=== PATIENT | female | born 1950 | race Asian ===

== ENCOUNTER → 2018-12-17 11:58 | Outpatient (CLI) | payer MEDICARE, OTHER, SELFPAY ==
--- NOTE | 2018-12-17 | DI.RAD.S_ITS ---
PROCEDURE: FL UPPER GI W AIR INDICATIONS: CHEST PAIN COMPARISON: [facility], CT, KIDNEY/ URETER/BLADDER, 11/24/2015, 12:52. [facility], CR, CHEST 2 VIEW, 08/31/2017, 9:14. 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 No suspicious abdominal calcifications. Visualized solid organ contours appear normal. Bony structures appear unremarkable. Cholecystectomy clips. Esophagus: Esophageal mucosa is normal on air-contrast views. On single-contrast views, there is diminished primary esophageal stripping wave as well as nonpropulsive tertiary contractions. No strictures, extrinsic mass effects, or diverticula. Spontaneous intermittent gastroesophageal reflux was observed. No hiatal hernia. There is normal transit of a calibrated barium tablet through the esophagus. Stomach: The stomach is normally distensible, with normal rugal fold thickness. No mucosal masses or ulcers. Pylorus and duodenal bulb appear normal in morphology. Duodenal folds are normal in thickness as well. IMPRESSION: 1. Diminished esophageal peristalsis. 2. Gastroesophageal reflux. 3. No hiatal hernia. Dictated by: Giuseppe Jones M.D. on 12/17/2018 at 15:00 Approved by: Giuseppe Jones M.D. on 12/17/2018 at 15:07
--- NOTE | 2018-12-17 | DI.MRI.S_ITS ---
PROCEDURE: MR HEAD/BRAIN WO/W CON INDICATIONS: FACIAL PARESTHESIA TECHNIQUE: Noncontrast axial T1 spin echo, axial T2 fast spin echo, sagittal and axial FLAIR, coronal T2 fast spin echo, axial gradient echo, axial diffusion and ADC through the brain. After the administration of contrast, axial and coronal T1 spin echo with fat saturation through the brain. COMPARISON: None. FINDINGS: Image quality: Excellent. CSF spaces: Basal cisterns are patent. No extra-axial fluid collections. Ventricles are normal in size and shape. Brain: No midline shift. No intracranial bleeds or masses. No abnormal intracranial enhancement. There is cerebral volume loss for age. There is periventricular white matter chronic small vessel ischemic change. The brainstem appears normal. Diffusion-weighted images demonstrate no acute ischemic insults. No chronic ischemic insults. Normal intravascular flow voids are present. Skull and face: Calvarial marrow is normal in signal. Orbits appear normal. Sinuses: Sinuses and mastoids appear clear. IMPRESSION: 1. Volume loss and small vessel ischemic disease. 2. No recent infarct. Dictated by: Richard Mendenhall M.D. on 12/17/2018 at 16:43 Approved by: Richard Mendenhall M.D. on 12/17/2018 at 16:45
--- NOTE | 2018-12-17 | DI.US.S_ITS ---
PROCEDURE: US CAROTID DOPPLER BI INDICATIONS: HYPERLIPIDEMIA TECHNIQUE: Color and pulse Doppler interrogation was performed of both carotid systems, with image documentation and velocity measurements. COMPARISON: None. FINDINGS: Stenosis calculations are based on SRU (Society of Radiologists in Ultrasound) criteria. Right side: Brachial blood pressure: 163/79 mm Hg. Common carotid artery peak systolic velocity: 56 cm/sec. Internal carotid artery peak systolic velocity: 56 cm/sec. Internal carotid artery end diastolic velocity: 28 cm/sec. External carotid artery peak systolic velocity: 90 cm/sec. ICA/CCA peak systolic ratio: 1.0. [place] scale imaging description: Mild scattered plaque. Percent internal carotid artery stenosis: Less than 50%. Vertebral artery: Flow direction is antegrade. Left side: Brachial blood pressure: 164/79 mm Hg. Common carotid artery peak systolic velocity: 69 cm/sec. Internal carotid artery peak systolic velocity: 111 cm/sec. Internal carotid artery end diastolic velocity: 35 cm/sec. External carotid artery peak systolic velocity: 99 cm/sec. ICA/CCA peak systolic ratio: 1.6. [place] scale imaging description: Moderate scattered plaque. Percent internal carotid artery stenosis: Less than 50%. Vertebral artery: Flow direction is antegrade. IMPRESSION: Less than 50% bilateral internal carotid artery stenosis. Dictated by: Paul Brice [facility] Interpreted: Akshat Sheets MD on 12/17/2018 at 14:16 Approved by: Akshat Sheets M.D. on 12/17/2018 at 15:50
== END ==
PROVIDERS: PCP Family Medicine; Visit Provider Family Medicine
DX: E78.5 Hyperlipidemia, unspecified (principal); R20.2 Paresthesia of skin; E11.9 Type 2 diabetes mellitus without complications; R07.9 Chest pain, unspecified; R20.0 Anesthesia of skin; I65.23 Occlusion and stenosis of bilateral carotid arteries; R19.2 Visible peristalsis; K21.9 Gastro-esophageal reflux disease without esophagitis; I67.82 Cerebral ischemia
CPT/HCPCS: 70553; 74247; 93880; A9579

== ENCOUNTER → 2019-01-27 10:15 | Outpatient (CLI) | payer MEDICARE, OTHER, SELFPAY ==
--- NOTE | 2019-01-27 | DI.NM.S_ITS ---
PROCEDURE: NM JENNIFER PERF SPECT REST & STR Rest and exercise myocardial perfusion SPECT with gated imaging and ejection fraction RADIOPHARMACEUTICAL: 11.8 mCi Tc-99m sestamibi IV at rest and 25.7 mCi Tc-99m sestamibi IV at peak exercise. A one day-protocol was performed. INDICATIONS: CHEST PAIN TECHNIQUE: Radiopharmaceutical was injected at peak stress test, and also at rest. SPECT images were obtained. SPECT myocardial perfusion images were displayed in short axis, horizontal long axis, and vertical long axis views. Gated images were reviewed using its learning software. COMPARISON: None. CARDIAC STRESS: A standard Alden treadmill exercise tolerance test was performed by the patient under the supervision of an attending staff. The patient exercised for 6 minutes and 54 seconds reaching 10.1 METs; functional aerobic impairment (CHIQUITA) is -10%. Hemodynamic data: There is normal blood pressure and heart rate response to exercise stress. Patient achieved 100% of maximum predicted heart rate at peak exercise. Symptoms: Patient denied chest pain during exercise. EKG: Resting ECG shows slight ST elevations in the inferior and anterior leads, which could be from benign early repolarization. No diagnostic EKG changes of ischemia; no ectopy. FINDINGS: Raw data: There is good myocardial labeling by radiotracer. No significant motion artifacts. Tcmh-ei-dvusg ratio is 0.23 (normal is less than 0.38 for sestamibi tracer, and less than 0.50 for thallium tracer). Left ventricle function: Gated images demonstrate normal left ventricle wall thickening. No segmental wall motion abnormality. No transient ischemic dilation; TID is 0.79 (normal less than 1.3). The left ventricle resting end-diastolic volume is 48 mL. Left ventricle stress ejection fraction is 95%; normal values are above 45%. Myocardial perfusion: There is normal distribution of activity in the left and right ventricular myocardium. No fixed or reversible perfusion defects. IMPRESSION: Low risk, normal treadmill nuclear stress test. 1) No perfusion evidence of ischemia or infarction. 2) Normal left ventricular size, wall motion, and systolic function (EF post stress overcalculated at 95%). 3) No ECG evidence of ischemia. 4) No angina during the study. 5) Compared to the nuclear stress test done 11/15/2014, no significant change. Dictated by: Patricio Thomas MD on 01/27/2019 at 16:35 Approved by: Patricio Thomas MD on 01/27/2019 at 16:38
--- NOTE | 2019-01-27 14:49 | PM.TREADMILL ---
Cardiac Stress Test Report Referral & Results Date Patient Seen: 01/27/19 Requesting provider: Tamiko Davis Indication: Chest discomfort Rest ECG: Unremarkable Procedure Note: Today following both written and verbal informed consent the patient was exercised according to a standard Alden protocol patient went for a total of 6 minutes 54 seconds achieving a maximum heart rate of approximately 135 (lots of motion artifact during exercise obscures ability to interpret heart rate) maximum systolic blood pressure of 172. This is approximately 10.1 METS. Exercise was terminated at this point because of targets were met and patient was unable to keep up and/or go any faster/further. Patient was also given Cardiolite through a previously started Hep-Lock IV by the diagnostic imaging staff approximately 1 minute prior to the cessation of exercise. No ST-T segment changes identified had an exercise. Motion artifact obscured ST segments during exercise. Normal heart rate and blood pressure response although somewhat blunted heart rate response again difficult to be sure given artifact No dysrhythmia Functional aerobic impairment rates-10% on the active scale or 10% better than average Impression: No ECG evidence of ischemia Please see perfusion imaging report as well Please note: Actual ECG tracings can be found in the PACS system.
== END ==
PROVIDERS: PCP Family Medicine; Visit Provider Family Medicine
DX: R07.89 Other chest pain (principal)
CPT/HCPCS: 78452; 93016; 93017; 93018; A9502

== ENCOUNTER → 2020-03-26 09:35 | Outpatient (CLI) | payer MEDICARE, OTHER, SELFPAY ==
[2020-03-28 02:27] LABS: COVID19 Sendout Not Detected (Not Detect)
== END ==
PROVIDERS: PCP Family Medicine; Visit Provider Nurse Practitioner
DX: Z11.59 Encounter for screening for other viral diseases (principal)
CPT/HCPCS: 87635

== ENCOUNTER 2020-03-29 05:45 | Inpatient (IN) | payer MEDICARE, OTHER, SELFPAY ==
[2020-03-25 08:49] VITALS: BMI 25.9
[2020-03-29] VITALS (16 sets, daily range): BP systolic 122–160; BP diastolic 54–114; PULSE 64–103; RESP 14–20; TEMP 35.8–36.8; O2SAT 95–100; BMI 25.9
--- NOTE | 2020-03-29 | DI.RAD.S_ITS ---
PROCEDURE: XR CERVICAL SPINE 2V OR 3V INDICATIONS: C3-7 ANTERIOR DISCECTOMY W/ ANTER POST INSTRUMENTATION TECHNIQUE: 3 view(s) of the cervical spine were acquired. COMPARISON: [facility], MR, MR CERVICAL SPINE WITHOUT CONTRAST, 01/20/2020, 13:26. FINDINGS: Bones: No fractures or dislocations to the T1 level where well seen. Anterior interbody vertebral fixation devices are seen at C3-4, C4-5, C5-6, and C6-7 from the anterior approach. Facet fixation devices are seen to have been placed bilaterally at C3-4, C4-5, C5-6, and C6-7. These have been placed from a posterior approach, and normal alignment is established.. Soft tissues: No prevertebral soft tissue swelling. IMPRESSION: Excellent anatomic alignment established after anterior and posterior surgical intervention and fixation device placement from C3 through C7. Dictated by: Akshat Sheets M.D. on 03/29/2020 at 12:58 Approved by: Akshat Sheets M.D. on 03/29/2020 at 13:04
[2020-03-29] MEDS: LACTATED RINGERS 1,000 ML 42 ML IV ×2 (07:18→09:40)
--- NOTE | 2020-03-29 07:22 | PM.PREOP ---
Pre-operative Note COVID-19 COVID-19 status: Negative Result date/Date tested (Pos, Neg/Pending): 03/26/20 Interval Note History & Physical reviewed/Exam performed by Physician: Yes Changes to H&P: No
--- NOTE | 2020-03-29 07:31 | P.OP_ITS ---
Operative Date/Time/Diagnoses Date of procedure: 03/29/20 Time of procedure: :22 Pre-op diagnosis: Cervical stenosis with myelopathy Post-op diagnosis: same Procedure & Clinicians Procedure: C3-4, C4-5, C5-6, C6-7 posterior fusion with posterior segmental instrumentation C3-4, C4-5, C5-6, C6-7 ACDF with cages Iliac crest bone graft aspirate Use of microscope Same procedure as scheduled: Yes Indications: [age] year old female with intractable pain from myelopathy. They had failed conservative management and requested operative intervention. Risks and benefits of surgery were discussed and appropriate consents were obtained. Surgeon: Turner Brown Risk Engineer: Lelia Patton Anesthesia Type: General Operative Notes Findings: None Closure Type: primary Specimen(s): none sent Prosthetic devices, grafts, tissues, transplants, or devices: Archuleta Cavus post instrumentation Nayla NICOLE-C anterior cage/plates Applied: catheter Estimated Blood Loss (mL): 15 Procedure in detail: The patient was brought to the operating room and intubated on the stretcher. Time-out was performed. There were then rolled over to the well-padded prone position on chest rolls. Two views of fluoroscopy were taken to confirm our positioning. The neck was then prepped and draped in the standard sterile fashion. Preoperative antibiotics were given. Using fluoroscopy, we localized for planned incisions. Two small 8 mm horizontal incisions were made over the lateral masses approximately 2 fingers below our planned surgical site. We then spread down and opened up the fascia. Then percutaneously placed our Steinmann pin through the soft tissue into the facet joint at C3-4 under fluoroscopic visualization. We used the reamer to decorticate the lateral masses compromising the facet. A trocar was placed over the Steinmann pin into the facet and then the pin was removed. We used a rasp to decorticate the facet joint itself. We then filled the DTrax cage with Primagen bone graft and impacted it into the facet joint at C3-4 under fluoroscopic guidance. We then took the lateral mass screw and placed it through the cage and then into the lateral mass for the posterior screw fixation. The battery container finishing hand was removed and we packed more bone graft down the trocar covering the lateral mass. This was done bilaterally. This completed the instrumented posterior fusion at C3-4. We then went to the next levels at C4-5, C5-6, and C6-7. The same procedure was performed with preparation, placement of the cage with bone graft, and placement of the screws for bilateral instrumented posterior fusion at C4-5, C5-6, and C6- 7. The wounds were irrigated. The skin was closed and a sterile dressing placed. The patient was then rolled over to the table in the supine position and positioned for the anterior surgery. The arms were tucked and a shoulder roll was placed. The neck and left iliac crest were prepped and draped in the standard sterile fashion. A 3 cm oblique incision was made on the left side of the neck along the skin fold. Bovie was used to split the platysma. We then bluntly dissected a standard anterolateral approach to the precervical fascia. A marker was placed and x-ray taken to confirm our positioning. We then used the Bovie to the subperiosteally lift up the longus colli muscles. Self-retaining retractors were placed. We then placed Mystic pins and distracted across the C3-4 disc space. We brought in the microscope. A complete anterior discectomy was performed at C3-4 using a combination of scalpel, curettes, pituitaries, and Kerrison rongeurs. The bur was used to take down the posterior osteophytes as well as decorticate the disc space. We then released the PLL and used the Kerrison to remove any further posterior osteophytes and disc material. At the end a nerve hook could be swept cephalad caudally and out the neural foramen and everything was open. We trialed for our cages. All these cages were 12 x 14 mm cages. A small stab incision was made over the left iliac crest. We placed a Jamshidi aspiration needle into the iliac crest and aspirated several mL of bone marrow graft. We then took our Nayla LDR NICOLE-C cage and packed it with Primagen, and mixed in the bone marrow aspirate. The cage was then placed into the disc space under fluoroscopic guidance. The 2 locking plates were placed through the cage for fixation. I accidentally impacted the 2nd plate through the same inferior hole as the 1st plate and slid next to the 1st 1 with a double plate going down through C4. We then placed another plate going up through C3 and it worked fine. This completed the ACDF at C3-4. We then went to the next levels at C4-5, C5-6, and then C6-7. Again a complete diskectomy was performed including taking down the PLL and posterior osteophytes and disc material. The endplates were prepped with a bur. We trialed and then packed our NICOLE-C cage with the bone graft and then placed into the disc space. The locking plates were placed as well. This completed the ACDFs at C4-5, C5-6, and C6-7. Final x-rays were taken. The wound was copiously irrigated. There was no bleeding. The carotid was bleeding nicely. The platysma was closed. The superficial skin were closed. A Steri-Strip was placed over the iliac crest incision. Sterile dressings were placed. The patient was then extubated and brought to the recovery room without complication. Complications: none Post-operative Condition: stable Disposition: PACU Plan for aftercare: Inpatient. Up with PT
[2020-03-29] MEDS: CLINDAMYCIN 600 MG/50 ML PIGGYBACK 50 MG IV ×3 (07:48→23:35)
--- NOTE | 2020-03-29 08:24 | SUR.OPER ---
Prone on padded OR bed, head in foam head support, gel chest rolls, gel pad under knees, pillow under lower legs, toes free of pressure, arms tucked at side. Safety belt at thigh. Tape securing shoulders bilaterally.
[2020-03-29] MEDS: THROMBIN (RECOMBINANT) 5,000 UNIT VIAL 5000 UNIT TOP (08:30)
[2020-03-29] MEDS: SODIUM CHLORIDE 0.9% 1,000 ML, GENTAMICIN 80 MG IRR (08:31)
[2020-03-29] MEDS: BUPIVACAINE 0.25% W/ EPI 30 ML VIAL 60 ML INJ (08:33)
--- NOTE | 2020-03-29 09:29 | SUR.OPER ---
Supine on padded OR bed, head on gel pillow, arms tucked at side and padded with gel, legs uncrossed, safety belt at thigh, tape over blanket over lower legs.
--- NOTE | 2020-03-29 11:43 | SUR.PHASEI ---
Pt arrived with oral airway for patency of airway, 02 nasal cannula added. airway out w/o difficulty, soft collar placed to neck
--- NOTE | 2020-03-29 11:55 | SUR.PHASEI ---
Pt slow to wake up, moves all extremeties to commands, stated no when asked if she wanted her dentures in and denied pain and nausea.
--- NOTE | 2020-03-29 12:44 | SUR.PHASEI ---
Pt with out pain, nausea, report called to Vin[facility], pt transported up to room 208 and left in stable condition. Bed low, locked and SCDs on, call light in hand.
[2020-03-29] MEDS: LACTATED RINGERS 1,000 ML 125 ML IV ×2 (12:58→21:48)
--- NOTE | 2020-03-29 13:21 | PC.ADMIT ---
[facility] Admission Note: The patient,Jessi Lopez,69 y/o, was given written information regarding hospital policies, unit procedures and contact persons. Patient's smoking status: Former smoker. Vital Signs - 8 hr 03/29/20 07:02 03/29/20 11:26 03/29/20 11:31 Temperature 98.1 F 96.6 F L Pulse Rate 64 90 89 Respiratory Rate 20 16 15 Blood Pressure 144/75 H 126/58 L 122/60 Pulse Oximetry 100 96 95 03/29/20 11:36 03/29/20 11:41 03/29/20 11:48 Temperature 97.3 F L 97.7 F Pulse Rate 88 88 94 H Respiratory Rate 14 19 20 Blood Pressure 137/63 136/63 151/70 H Pulse Oximetry 96 96 99 03/29/20 11:57 03/29/20 12:12 03/29/20 12:25 Temperature 97.8 F 96.5 F L Pulse Rate 94 H 89 89 Respiratory Rate 20 19 15 Blood Pressure 160/73 H 147/72 H 146/71 H Pulse Oximetry 99 99 100 PATIENT ACCOMPANIED BY SPOUSE FROM PACU. PATIENT AWAKE BUT DROWSY, STATES I JUST WANT TO BE WARM AND SLEEP. WARM BLANKETS PROVIDED. PROVIDED ICE WATER, PATIENT NOT INTERESTED AT THIS TIME. IVF INFUSING ORDERED. SCD'S ON. ANTERIOR NECK DRSG CDI, POSTERIOR NECK DRSG WITH SHADOW DRAINAGE TO RIGHT DISTAL CORNER OF DRSG, GRAFT SITE LEFT ASIS HIP DRSG CDI. ORIENTED TO CALL LIGHT SYSTEM.
--- NOTE | 2020-03-29 15:11 | PT-IP ANOTE ---
PT received orders and reviewed chart. Contacted pt to initiate evaluation and was able to collect PLOF from her and her spouse contributed heavily as pt was very soft-spoken. Pt did not feel ready to move, citing nausea and pain. Will follow up 03/30/20.
[2020-03-29] MEDS: LOSARTAN 50 MG TABLET 100 MG PO (16:36)
[2020-03-29] MEDS: DOCUSATE 100 MG CAPSULE PO (20:04)
[2020-03-29] MEDS: GABAPENTIN 300 MG CAPSULE PO (20:04)
[2020-03-29] MEDS: OXYCODONE IR 5 MG TABLET PO (20:04)
--- NOTE | 2020-03-29 23:31 | PC.NURSE ---
Evening note: Jessi reports little to no pain to her neck, refused ice packs this evening. Soft cervical collar on for support. Reports pain 5/10 to bilateral pinky fingers and left elbow. Medicated with oxycodone with good results, patient dozing intermittently since given med. Denies numbness or tingling in extremities. VS stable, hypertensive, BP meds given as scheduled. RA O2 98%
[2020-03-29] MEDS: ACETAMINOPHEN 325 MG TABLET 650 MG PO (23:35)
[2020-03-29] MEDS: OXYCODONE IR 10 MG TABLET PO (23:35)
[2020-03-30] MEDS: OXYCODONE IR 10 MG TABLET PO ×2 (03:51→06:39)
[2020-03-30] MEDS: LEVOTHYROXINE 50 MCG TABLET PO (05:20)
[2020-03-30 06:35] VITALS: BP 136/78; PULSE 93; RESP 16; TEMP 36.8; O2SAT 97
--- NOTE | 2020-03-30 07:46 | PM.PNPO.1 ---
Subjective Subjective Date Patient Seen: 03/30/20 Time Patient Seen: 07:46 Interval history: She feels like the oxycodone is not helping on the pain. Also she feels much weaker in the left arm today Exam Vital Signs (past 8 hours): - 03/29/20 23:59 03/30/20 06:35 Temperature 97.1 F L 98.3 F Pulse Rate 101 H 93 H Respiratory Rate 18 16 Blood Pressure 147/73 H 136/78 Pulse Oximetry 97 97 Oxygen Delivery Method Room Air Oxygen Flow Rate 0 Const Orientation: alert and oriented x3 Back/Spine/Pelvis Other: CDI. Drain 0/2 output. 5/5 motor both upper extremities except for 2/5 left deltoid 4/5 left biceps, triceps, intrinsics. 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 I am going to put her on some steroids. I also going to change her pain medication to Dilaudid. I will check a CT of the neck as well. Quality VTE Deep Vein Thrombosis/Pulmonary Embolism Present on Admission: No
--- NOTE | 2020-03-30 07:49 | DI.CT.S_ITS ---
PROCEDURE: CT CERVICAL SPINE WO CON INDICATIONS: L arm weakness TECHNIQUE: Noncontrast 3 mm thick sections acquired from the skull base to the T4 level. Sagittal and coronal reformats were then constructed. For radiation dose reduction, the following was used: automated exposure control, adjustment of mA and/or kV according to patient size. COMPARISON: [facility], CR, XR CERVICAL SPINE 2V OR 3V, 03/29/2020, 9:02. FINDINGS: Image quality: Excellent. Bones: No fractures or dislocations. There are expected postsurgical changes from cervical fusion procedure both anteriorly and posteriorly performed 03/29/20, 1 day ago. No postoperative hematoma is found. Small amounts of gas are seen with within the soft tissues of the anterior and posterior neck, left slightly greater than right, small in overall quantity. A surgical drain traverses from left side into the anterior prevertebral space, without adjacent abnormal fluid collection. Visualized superior ribs are intact. Soft tissues: Prevertebral soft tissues are normal in thickness. No paravertebral hematomas. No apical pneumothoraces. IMPRESSION: Expected postsurgical changes 1 day after operative fusion from anterior and posterior approach from C3 through C7. Small amounts of gas are seen within the soft tissues as expected. No postoperative hematoma or abnormal fluid collection is seen. Surgical drain noted from left-sided approach extending into the prevertebral space. The nurse caring for the patient was contacted directly to confirm presence of a surgical drain at this site, and she concurs. Source of left-sided arm weakness is not seen. Dictated by: Akshat Sheets M.D. on 03/30/2020 at 9:37 Approved by: Akshat Sheets M.D. on 03/30/2020 at 10:18
--- NOTE | 2020-03-30 09:15 | PT.IIE ---
Current Diagnoses Spinal stenosis, cervical region (03/29/20) Surgery Performed Operation Date: 03/29/20 07:45 Actual Procedures p C3-7 anterior cervical discectomy & anterior/posterior instrumentated fusion w/ bone graft - Turner Brown MD Surgical History (Last Updated 03/25/20 @ 09:14 by Cara Pendleton RN) History of section (Acute) Hx of appendectomy (Acute) Hx of bilateral cataract extraction (Acute) Hx of cholecystectomy (Acute) Hx of dilation and curettage (Acute) Hx of eye surgery (Acute) Hx of sinus surgery (Acute) Hx of tubal ligation (Acute) Medical History (Last Updated 03/25/20 @ 09:19 by Cara Pendleton RN) Allergic rhinitis (Acute) Arthritis (Acute) Esophageal dysmotility (Acute) GERD (gastroesophageal reflux disease) (Acute) Hearing loss (Acute) HTN (hypertension) (Acute) Hypercholesterolemia (Acute) Hypothyroid (Acute) IBS (irritable bowel syndrome) (Acute) Pre-diabetes (Acute) Psoriasis (Acute) RLS (restless legs syndrome) (Acute) Spinal stenosis (Acute) Physical Therapy Inpatient Evaluation/Re-Eval M1 PT/OT-IP Prior Functional Status Start: 03/29/20 14:40 Freq: NEEDED Status: Active Protocol: Document 03/30/20 09:15 AB (Rec: 03/30/20 10:36 [email or web address]) Medical Review Prior Functional Status Medical History Reviewed Yes Communication able to make needs known Mobility and Gait able to ambulate without AD; independent with all mobilities Social History Household Members spouse Living Arrangements House Number of Floors (Floors) One Floor Number of Stairs To Enter/Railing? 2 steps to enter without rails Home Environment Standard Height Toilet,Tub/ Shower Home Equipment Front Wheel Walker,Shower Seat with Backrest,Hand Held Shower Additional Social History Comment Pt lives with her , Ramiro, who is retired. Ramiro uses a cane for most mobility but states he will be able to assist pt at discharge depending on level of assist needed. M2 PT-IP Current Condition Start: 03/29/20 14:40 Freq: NEEDED Status: Active Protocol: Document 03/30/20 09:15 AB (Rec: 03/30/20 10:36 [email or web address]) Physical Therapy Current Condition Current Condition Evaluation Date 03/30/20 Treatment Diagnosis s/p C3-4,C4-5,C5-6, C6-7 fusion; difficulty in walking Onset Date 03/29/20 Precautions Cervical Spine Precautions Soft Collar for Comfort,No Heavy Lifting,Log Roll M3 PT-IP Subjective Start: 03/29/20 14:40 Freq: NEEDED Status: Active Protocol: Document 03/30/20 09:15 AB (Rec: 03/30/20 10:36 AB [id number]) Subjective Physical Therapy Visit Type Type Initial Evaluation Visit Start Time 09:15 Visit Stop Time 09:48 Total Visit Minutes 33 Number of SPEECH AND LANGUAGE TUTOR Visits 0 Physical Therapy Visit Comments Patient Comments pt is agreeable to do PT and requested to go back to bed afterwards Therapy Pain Assessment Pain When Pain Assessed At Rest Pain Present Pain Present Pain Reported Location Left Arm Intensity 9 Scale Used Numeric (0 - 10) Pain Management Techniques Distraction,Modification of Treatment,Re-positioning, Timing of Activity with Medications M4 PT-IP Mobility and Gait Start: 03/29/20 14:40 Freq: NEEDED Status: Active Protocol: Document 03/30/20 09:15 AB (Rec: 03/30/20 10:36 AB [id number]) PT-Bed Mobility Assessment Rolling Type of Rolling Log Rolling Level of Assist Standby Assistance Sit to Supine Sit to Supine Contact Guard Assistance PT-Transfer Assessment Sit to and From Stand Sit to and from Stand Minimal Assistance,1 Person Assistance,Use of Upper Extremities Equipment Transfer Assistive Device Gait Belt,Front Wheeled Walker Orthotic/Prosthetic Devices or Brace: No Transfers Transfer Destination Bed Transfer Technique ambulated using FWW Transfer Ability Level of Assist Minimal Assistance,1 Person Assistance,Use of Upper Extremities Comments Mobility Comments pt sitting on chair. c/o LUE pain and weakness and requesting to go back to bed. educated on cervical precautions and log roll bed mobility. completed sit to stand min A and cues and ambulated towards the bed using FWW min A. pt refused to do more ambulation and stated that she has to go back to bed so bad. completed log roll sit to supine CGA and cues. positioned pt in bed. call light and table placed within reach. Gait Assessment Gait Gait Assistance Required: Minimum Assistance,1 Person Assist Distance (Feet) 12 Assistive Devices Assistive Device Gait Belt,Front Wheeled Walker Orthotic/Prosthetic Devices or Brace: No Gait Deviations General Gait Pattern Antalgic,Decreased Stride Length,Decreased Feet Clearance Factors Limiting Gait Function Factors Limiting Gait Function Decreased Activity Tolerance, Decreased Sensation,Decreased Strength,Limited Range of Motion,Pain,Poor Balance,Poor Safety Awareness PT-Balance Assessment Sitting Balance and Reactions Static Sitting Balance Ability Good Dynamic Sitting Balance Ability Good Standing Balance and Reactions Static Standing Balance Ability Fair Dynamic Standing Balance Ability Fair Device Used FWW M5 PT-IP Objective Assessments Start: 03/29/20 14:40 Freq: NEEDED Status: Active Protocol: Document 03/30/20 09:15 AB (Rec: 03/30/20 10:36 [email or web address]) Orientation Orientation/Cognition Level of Alertness Alert Orientation Name,Place,Situation Language Function Ability No Deficits Noted Safety Awareness Understands Safety Issues Memory Description No Deficits Noted Gross Range of Motion Lower Extremity ROM Assessment Within Functional Limits Strength Lower Extremity Strength Assessment Within Functional Limits Sensation Assessment Sensation Gross Sensation Left UE Impaired Sensation Description Pain Comments Sensation Comments when asked what type of pain and pt stated all of the above M6 PT-IP Treatment Start: 03/29/20 14:40 Freq: NEEDED Status: Active Protocol: Document 03/30/20 09:15 AB (Rec: 03/30/20 10:36 [email or web address]) Physical Therapy Treatment Education Education Provided Precautions,Post-Op Packet, Safety M7 PT-IP Assessment and Plan Start: 03/29/20 14:40 Freq: NEEDED Status: Active Protocol: Document 03/30/20 09:15 AB (Rec: 03/30/20 10:36 [id number]) PT Summary Assessment and Plan Potential Rehabilitation Potential Good Status of Condition at Evaluation Evolving Summary Impairments Pain,ROM,Strength,Balance, Coordination,Sensation,Tone, Bed Mobility,Transfers,Gait, Activity Tolerance Assessment Summary pt requiring min A with mobility and is unable to tolerate much activity. pt plans to go home and stated that spouse can assist her but spouse uses a SPC for ambulation and will be limited to assistance that can be provided. caregiver training will be conducted when appropriate as well as stair climbing training. will continue to assess progress. Goals Bed Mobility Goal Independent Transfer Goal Independent,Front Wheeled Walker Gait Goal Independent,Front Wheel Walker Gait Distance 200 Other Goals ambulation without AD SBA 150 ft up/down 2 steps wtihout rails SBA Days to Meet Goals 5 Frequency of Treatment Frequency Of Treatment Twice a Day Treatment Plan Physical Therapy Treatment Plan Bed Mobility Training,Transfer Training,Gait Training, Therapeutic Exercise,Balance Retraining,Post Op Education, Discharge Planning,Hot or Cold Pack,Neuromuscular Re-ed, Coordination Retraining,Manual Therapy Other Recommendations and Next Treatment ambulation, stair climbing, Focus caregiver training when appropriate Recommendations To Nursing Amount of Assist Needed 1 Person Assist Discharge Recommendations PT Discharge Recommendations Home with Assistance,Home Health,SNF Rehab Other Discharge Recommendations depending on progress: SNF vs home with assist and HHPT Transportation Needs at Discharge Private Vehicle,Wheelchair/ Cabulance
[2020-03-30] MEDS: DOCUSATE 100 MG CAPSULE PO ×2 (09:38→21:21)
[2020-03-30] MEDS: HYDROMORPHONE 2 MG TABLET PO (09:38)
[2020-03-30] MEDS: SPIRONOLACTONE 25 MG TABLET PO (09:38)
[2020-03-30] MEDS: DEXAMETHASONE 10 MG/ML VIAL IV (09:41)
[2020-03-30 10:00] VITALS: BP 150/77; PULSE 75; RESP 15; TEMP 36.6; O2SAT 99
--- NOTE | 2020-03-30 11:11 | SLP.IPNOTE ---
Swallow screen administered Pt has no complaints and is tolerating soft foods, water and pills. No formal bedside swallow evaluation warranted at this time. Voice was clear and at baseline, per pt/family report. Education was provided orally and in writing RE potential surgical effects on voice and swallow. Pt verbalized understanding.
--- NOTE | 2020-03-30 11:14 | PC.NURSE ---
Patient up to chair after having a ct of her neck. Given first dose of decadron through iv. Patients pain medication changed from oxycodone to Dilaudid and this has been more effective for her discomfort. She has a cdi to her anterior neck, and her posterior neck dressing has dried bloody drainage to the r.lower corner. Both are intact. She states that she is having some numbness down her r.arm, normally before surgery it was only to her r.hand. She ambulated with PT and she is now back to bed, in room visiting.
[2020-03-30 12:22] VITALS: BP 148/73; PULSE 78; RESP 15; TEMP 36.7; O2SAT 99
--- NOTE | 2020-03-30 13:02 | OT.IP.EVAL ---
Current Diagnoses Spinal stenosis, cervical region (03/29/20) Surgery Performed Operation Date: 03/29/20 07:45 Actual Procedures p C3-7 anterior cervical discectomy & anterior/posterior instrumentated fusion w/ bone graft - Turner Brown MD Past Medical History (Last Updated 03/25/20 @ 09:19 by Cara Pendleton RN) Allergic rhinitis (Acute) Arthritis (Acute) Esophageal dysmotility (Acute) GERD (gastroesophageal reflux disease) (Acute) Hearing loss (Acute) HTN (hypertension) (Acute) Hypercholesterolemia (Acute) Hypothyroid (Acute) IBS (irritable bowel syndrome) (Acute) Pre-diabetes (Acute) Psoriasis (Acute) RLS (restless legs syndrome) (Acute) Spinal stenosis (Acute) Surgical History (Last Updated 03/25/20 @ 09:14 by Cara Pendleton RN) History of section (Acute) Hx of appendectomy (Acute) Hx of bilateral cataract extraction (Acute) Hx of cholecystectomy (Acute) Hx of dilation and curettage (Acute) Hx of eye surgery (Acute) Hx of sinus surgery (Acute) Hx of tubal ligation (Acute) Occupational Therapy Inpatient Evaluation/Re-Eval M1 PT/OT-IP Prior Functional Status Start: 03/30/20 15:24 Freq: NEEDED Status: Active Protocol: Document 03/30/20 13:02 [facility] (Rec: 03/30/20 15:53 [facility] [id number]) Medical Review Prior Functional Status Medical History Reviewed Yes Communication able to make needs known Mobility and Gait able to ambulate without AD; independent with all mobilities Activities of Daily Living and IADL's Prior pt completely independent with all ADL and IADl needs. Social History Household Members spouse Living Arrangements House Number of Floors (Floors) One Floor Number of Stairs To Enter/Railing? 2 steps to enter and states has a left hand rail. Home Environment Standard Height Toilet,Tub/ Shower Home Equipment Front Wheel Walker,Straight Cane,Shower Seat with Backrest ,Hand Held Shower Additional Social History Comment Pt lives with her , Ramiro, who is retired. Ramiro uses a cane for most mobility but states he will be able to assist pt at discharge depending on level of assist needed. M2 OT-IP Current Condition Start: 03/30/20 15:24 Freq: Status: Active Protocol: Document 03/30/20 13:02 [facility] (Rec: 03/30/20 15:53 [facility] [id number]) Occupational Therapy Current Condition Current Condition Evaluation Date 03/30/20 Treatment Diagnosis s/p C3-7 ACDF Diagnosis Onset Date 03/29/20 Post Operative Precautions Cervical Spine Precautions Soft Collar for Comfort,No Heavy Lifting,Log Roll M3 OT- IP Subjective and Pain Start: 03/30/20 15:24 Freq: Status: Active Protocol: Document 03/30/20 13:02 [facility] (Rec: 03/30/20 15:53 [facility] [id number]) OT- Subjective Occupational Therapy Visit Type Type Initial Evaluation Visit Start Time 12:34 Visit Stop Time 13:02 Total Visit Minutes 38 Occupational Therapy Visit Comments Patient Comments Pt approached in the morning, but not wanting to do OT until after lunch. Patient/Caregiver Goals To go home. OT Pain Assessment Pain When Pain Assessed During Mobility Pain Present Pain Present Pain Reported Location Left Arm Intensity 8 M4 OT- IP ADL's Start: 03/30/20 15:24 Freq: Status: Active Protocol: Document 03/30/20 13:02 [facility] (Rec: 03/30/20 15:53 [facility] [id number]) OT [id number] Comments OT Self-Feeding Comments Not at meal time, pt aware to eat upright, chew her food thoroughly, and alternate between solid and liquids. OT ADL-Grooming General Evaluation Grooming Ability Standby Assistance Areas Needing Assistance Retrieving/Set-up of Grooming Items Comments OT Grooming Comments Pt able to do while standing with FWW in front of her. OT ADL-Oral Care General Eval Oral Care Ability Standby Assistance Areas of Assistance Retrieving/Set-Up of Items Comments Oral Care Comments Initial education to spit into the cup to best follow her cervical precautions. OT ADL-Dressing General Eval Lower Body Dressing Ability Maximum Assistance Comments OT Dressing Comments Pt not wanting to attempt LB dressing at this time. Pt did not want to try to learn how to luigi/doff the soft collar today. OT ADL-Toileting General Evaluation Toileting Ability Total Assistance Comments OT Toileting Comments Pt not having to go and has a catheter in place. OT ADL-Bathing Comments OT Bathing Comments NOt performed. M5 OT- IP IADL's Start: 03/30/20 15:24 Freq: Status: Active Protocol: Document 03/30/20 13:02 [facility] (Rec: 03/30/20 15:53 [facility] [id number]) OT-Instrumental Activities of Daily Living Home Safety Awareness Awareness of Need for Assistance at Home Good Awareness Medication Management Medication Management Comments Pt's states will be able to assist pt with all needs at home of IADl's. Money Management Money Management Comments Pt's states will be able to assist pt with all needs at home of IADl's. Meal Preparation Meal Preparation Comments Pt's states will be able to assist pt with all needs at home of IADl's. Babysitter Babysitter Comments Pt's states will be able to assist pt with all needs at home of IADl's. M6 OT- IP Functional Cognition Start: 03/30/20 15:24 Freq: Status: Active Protocol: Document 03/30/20 13:02 [facility] (Rec: 03/30/20 15:53 [facility] [id number]) Cognitive Factors Limiting Selfcare Function Cognitive Ability Level of Alertness Alert Patient Orientation Name,Place,Situation Attention Span Ability Capable of Focused Attention, Capable of Sustained Attention Ability to Follow Commands Able to Follow One Step Commands Safety Awareness Decreased Ability to Apply Precautions,Underestimates Need for Assistance Cognitive Comments Cognitive Assessment Comments Pt a little groggy and needing cues for log rolling and for cervical precautions during ADl needs. OT- Vision and Hearing OT- Hearing Assessment OT- Hearing Assessment WFL M7 OT- IP Mobility and Balance Start: 03/30/20 15:24 Freq: Status: Active Protocol: Document 03/30/20 13:02 [facility] (Rec: 03/30/20 15:53 [facility] [id number]) OT- Bed Mobility Assessment Rolling Type of Rolling Roll to Right Level of Assistance Contact Guard Assistance Supine to Sit Supine to Sit Assist Minimal Assistance,1 Person Assistance Sit to Supine Sit to Supine Assist Minimal Assistance,1 Person Assistance Scooting Scooting to Edge of Bed Minimal Assistance OT-Transfer Assessment Sit to and From Stand Sit to and from Stand Minimal Assistance Transfers Transfer Ability Minimal Assistance Technique Transfer Destination Bed Devices Transfer Assistive Devices Gait Belt,Front Wheeled Walker Comments Mobility Comments MARIANA to stand and for steadying while walking with the FWW. Pt initially nauseated, dry heaves, and then able to burp. BP 151/82 OT- Balance Assessment Sitting Balance and Reactions Static Sitting Balance Ability Good Standing Balance and Reactions Static Standing Balance Ability Fair M8 OT- IP Objective Assessments Start: 03/30/20 15:24 Freq: Status: Active Protocol: Document 03/30/20 13:02 [facility] (Rec: 03/30/20 15:53 [facility] [id number]) OT Gross Range of Motion Upper Extremity Range of Motion Assessment Left Impaired ROM Impairments Pt not able to raise up her left arm at this time and able to use in gravity eliminated positions. OT Strength Upper Extremity Strength Assessment Left Impaired OT-Muscle Tone Assessment Muscle Tone WNL Yes OT Sensation Assessment Comments Summary Comments Decreased sensation for LUE. Edema Edema Comments Swelling in left arm and decreased coordination and denture slipped out of her hand while trying to brush her dentures at the sink. M9 OT- IP Assessment and Plan Start: 03/30/20 15:24 Freq: Status: Active Protocol: Document 03/30/20 13:02 [facility] (Rec: 03/30/20 15:53 [facility] [id number]) OT Summary Assessment and Plan Potential Rehabilitation Potential Good Analytic Complexity at Evaluation Low Summary OT Impairments Strength,Balance,Sensation, Functional Cognition, Functional Mobility,Self- Feeding,Grooming,Dressing, Toileting,Bathing,Toilet Transfers,Shower Transfers, Activity Tolerance Progress Towards Goals Slow Progress due to Pain,Slow Progress due to Medical Issues Assessment Summary Pt low complexity s/p C3-C7 ACDF main barriers are having increased left arm weakness 2/ 5 to 4/5 form proximal to distal. Pt needing one person assist for Adl and functional mobility at this time. Pt's uses a cane therefore pending pt's progress and caregiver training home with assist versus possible short skilled rehab. Goals Self-Feeding Goal Independent Grooming Goal Independent Dressing Goal Independent Toileting Goal Independent Bathing Goal Independent Toilet Transfer Goal Independent Shower Transfer Goal Independent Patient/Caregiver Education Goal Demonstrate Post-Op Precautions,Caregiver Independent Assisting Patient Days to Meet Goals 5 Frequency of Treatment Frequency Of Treatment Once a Day Treatment Plan OT Treatment Plan ADL Training,Functional Cognition Training,Functional Mobility,Patient/Family Education,Discharge Planning Other Treatment Recommendations and Next caregivr training, use of LB Treatment Focus dressing equipment, toileting Discharge Recommendations OT Discharge Recommendations Home with Assistance,SNF Rehab Home Equipment Needs grab bar in shower, possibly tub bench Transportation Needs at Discharge Private Vehicle,Wheelchair/ Cabulance
[2020-03-30] MEDS: DEXAMETHASONE 4 MG/ML VIAL IV ×2 (13:49→17:52)
--- NOTE | 2020-03-30 14:39 | CM.IDA ---
Initial DCP Assessment Note Pt is a 69 yo female, resident of [place], now POD#1 from spinal surgery w/ Dr Brown PCP: Tamiko Davis Payer: [facility]/ for [facility] Reviewed chart, pt discussed in multidisciplinary rounds this morning. therapy indicates home w/ HH PT vs SNF today based on movement POD#1. Met w/patient to introduce role, patient sleepy, states she hopes to return home w/her to assist. This STORE OPERATIONS MANAGER will follow closely w/therapy team in coordination of DCP TAQUERIA Linda Discharge Planning/Care Management CM Discharge Assessment Start: 03/30/20 14:24 Freq: Status: Active Protocol: Document 03/30/20 14:25 DONTE (Rec: 03/30/20 14:39 [facility] [id number]) Discharge Planning Assessment Assigned Jail Officer TAQUERIA Hanley DPOA/Assigned Designee Name Alfred Lopez, spouse Contact Information [phone] Advance Directives? Yes Advance Directives on File No History Provided By Patient,Significant Other Has Patient been admitted in last 30 No days? Prior Living Arrangements House Household Members spouse Type of transporation used prior to Drives own vehicle admit Independent with ADL's Yes Is patient alert and oriented? Yes Barriers to Discharge No Comment Depending on progress Discharge Plan Home Transportation Arrangement Likely spouse Referrals Initiated None needed
--- NOTE | 2020-03-30 15:06 | PT.IPTN ---
Current Diagnoses Spinal stenosis, cervical region (03/29/20) Surgery Performed Operation Date: 03/29/20 07:45 Actual Procedures p C3-7 anterior cervical discectomy & anterior/posterior instrumentated fusion w/ bone graft - Turner Brown MD Physical Therapy Treatment Note M2 PT-IP Current Condition Start: 03/29/20 14:40 Freq: NEEDED Status: Active Protocol: Document 03/30/20 09:15 AB (Rec: 03/30/20 10:36 AB [id number]) Physical Therapy Current Condition Current Condition Evaluation Date 03/30/20 Treatment Diagnosis s/p C3-4,C4-5,C5-6, C6-7 fusion; difficulty in walking Onset Date 03/29/20 Precautions Cervical Spine Precautions Soft Collar for Comfort,No Heavy Lifting,Log Roll M3 PT-IP Subjective Start: 03/29/20 14:40 Freq: NEEDED Status: Active Protocol: Document 03/30/20 14:45 SP (Rec: 03/30/20 17:50 SP [id number]) Subjective Physical Therapy Visit Type Type Treatment Note Visit Start Time 14:45 Visit Stop Time 15:06 Total Visit Minutes 21 Notes SPTA Ahna, attended tx provided IV pole mgt needed during tx. Number of EQUIPMENT TECHNICIAN Visits 1 Physical Therapy Visit Comments Patient Comments Pt is agreeableto working with PT, pain 4/10. Therapy Pain Assessment Pain When Pain Assessed During Mobility Pain Present Pain Present Pain Reported Location Left Arm Intensity 4 Scale Used Numeric (0 - 10) Description With Movement Pain Behaviors Facial Grimacing Pain Management Techniques Re-positioning,Timing of Activity with Medications M4 PT-IP Mobility and Gait Start: 03/29/20 14:40 Freq: NEEDED Status: Active Protocol: Document 03/30/20 14:45 SP (Rec: 03/30/20 17:50 SP [id number]) PT-Bed Mobility Assessment Rolling Type of Rolling Roll to Right Level of Assist Standby Assistance Supine to Sit Supine to Sit Contact Guard Assistance Scooting Scooting to Edge of Bed Standby Assistance PT-Transfer Assessment Sit to and From Stand Sit to and from Stand Contact Guard Assistance,Use of Upper Extremities Equipment Transfer Assistive Device Gait Belt,Front Wheeled Walker Orthotic/Prosthetic Devices or Brace: No Transfers Transfer Destination Bed Transfer Technique ambulated using FWW Transfer Ability Level of Assist Contact Guard Assistance,Use of Upper Extremities Comments Mobility Comments Pt was supine in bed with soft collar donned when arrived. Log roll to R SBA, R sidelying to sitting and scoot to EOB SBA, sit to stand CGA using FWW. Pt ambulated using FWW step over step gait, cued for obstacle mgt and COG over ROHAN due to trunk swayed mostly to R requiring Vu for recovery during gait in room and L coming out door into hallway and back approx 80 ft CG- MIn A. Pt required cuing for proper hand placement to reach back for slow descent safety. Pt was seatedin chair when finished with call light and all needs in reach. EQUIPMENT TECHNICIAN discussed contacting spouse to set up time tomorrow am to work together (caregiver training), patient confirmed will let us know in the am. Pt plans to return home with spouse support. Gait Assessment Gait Gait Assistance Required: Contact Guard Assist,Minimum Assistance,1 Person Assist Distance (Feet) 80 Able to Maintain Weight Bearing Status Yes During Gait Assistive Devices Assistive Device Gait Belt,Front Wheeled Walker Orthotic/Prosthetic Devices or Brace: No Gait Deviations General Gait Pattern Antalgic,Decreased Stride Length,Decreased Feet Clearance,Lateral Trunk Lean Factors Limiting Gait Function Factors Limiting Gait Function Decreased Activity Tolerance, Decreased Sensation,Decreased Strength,Limited Range of Motion,Pain,Poor Balance,Poor Safety Awareness Comments Gait Comments See mobility comments Stair Climbing Assessment Comments Stair Climbing Comments Not assessed, will need to assess 2 stair mgt 0 HR at home for safe DC prior to going home. PT-Balance Assessment Sitting Balance and Reactions Static Sitting Balance Ability Good Dynamic Sitting Balance Ability Good Standing Balance and Reactions Static Standing Balance Ability Fair Dynamic Standing Balance Ability Fair Device Used FWW M5 PT-IP Objective Assessments Start: 03/29/20 14:40 Freq: NEEDED Status: Active Protocol: Document 03/30/20 09:15 AB (Rec: 03/30/20 10:36 AB [id number]) Orientation Orientation/Cognition Level of Alertness Alert Orientation Name,Place,Situation Language Function Ability No Deficits Noted Safety Awareness Understands Safety Issues Memory Description No Deficits Noted Gross Range of Motion Lower Extremity ROM Assessment Within Functional Limits Strength Lower Extremity Strength Assessment Within Functional Limits Sensation Assessment Sensation Gross Sensation Left UE Impaired Sensation Description Pain Comments Sensation Comments when asked what type of pain and pt stated all of the above M6 PT-IP Treatment Start: 03/29/20 14:40 Freq: NEEDED Status: Active Protocol: Document 03/30/20 14:45 SP (Rec: 03/30/20 17:50 SP [id number]) Physical Therapy Treatment Education Education Provided Precautions,Safety M7 PT-IP Assessment and Plan Start: 03/29/20 14:40 Freq: NEEDED Status: Active Protocol: Document 03/30/20 14:45 SP (Rec: 03/30/20 17:50 SP [id number]) PT Summary Assessment and Plan Potential Rehabilitation Potential Good Status of Condition at Evaluation Evolving Summary Impairments Pain,ROM,Strength,Balance, Coordination,Sensation,Tone, Bed Mobility,Transfers,Gait, Activity Tolerance Progress Towards Goals Progressing Toward Goals,Slow Progress due to Activity Tolerance Assessment Summary pt requiring CGA during bed mobiltiy and sit to stand, gait Min A for recovery trunk lean to R during turns to L using FWW. pt plans to go home and stated that spouse can assist her but spouse uses a SPC for ambulation and will be limited to assistance that can be provided. caregiver training will be conducted when appropriate as well as stair climbing training. will continue to assess progress. Goals Bed Mobility Goal Independent Transfer Goal Independent,Front Wheeled Walker Gait Goal Independent,Front Wheel Walker Gait Distance 200 Other Goals ambulation without AD SBA 150 ft up/down 2 steps wtihout rails SBA Days to Meet Goals 5 Frequency of Treatment Frequency Of Treatment Twice a Day Treatment Plan Physical Therapy Treatment Plan Bed Mobility Training,Transfer Training,Gait Training, Therapeutic Exercise,Balance Retraining,Post Op Education, Discharge Planning,Hot or Cold Pack,Neuromuscular Re-ed, Coordination Retraining,Manual Therapy Other Recommendations and Next Treatment ambulation, caregiver trng and Focus stairs in am ask spouse when plans to be here 03/31/20 Recommendations To Nursing Amount of Assist Needed 1 Person Assist Discharge Recommendations PT Discharge Recommendations Home with Assistance,Home Health,SNF Rehab Other Discharge Recommendations depending on progress: SNF vs home with assist and HHPT Transportation Needs at Discharge Private Vehicle,Wheelchair/ Cabulance
[2020-03-30 17:12] VITALS: BP 145/68; PULSE 78; RESP 17; TEMP 37; O2SAT 93
[2020-03-30 17:52] VITALS: BP 145/68; PULSE 78
[2020-03-30] MEDS: LOSARTAN 50 MG TABLET 100 MG PO (17:52)
[2020-03-30 19:54] VITALS: BP 150/79; PULSE 71; RESP 18; TEMP 36.8; O2SAT 98
[2020-03-30] MEDS: SENNOSIDES 8.6 MG TABLET 17.2 MG PO (21:21)
[2020-03-30] MEDS: diphenhydrAMINE 25 MG TABLET PO (21:21)
[2020-03-30] MEDS: GABAPENTIN 300 MG CAPSULE PO (21:21)
[2020-03-31] VITALS: BP 140/65; PULSE 75; RESP 16; TEMP 36.4; O2SAT 97
[2020-03-31] MEDS: SODIUM CHLORIDE 0.9% FLUSH 10 ML IV ×3 (00:13→08:59)
[2020-03-31] MEDS: DEXAMETHASONE 4 MG/ML VIAL IV ×2 (00:13→06:03)
--- NOTE | 2020-03-31 01:03 | PC.NURSE ---
Addendum entered by Kya May R.N. 03/31/20 05:39: Refused to have catheter removed until after therapy. Educated in reasons to remove catheter promptly but continues to decline. Original Note: Patient seen and assessed at 0028. Is alert and oriented. Breath sounds CTA with RA sat of 97%. HRR with elevated BP of 140/65. Denies nausea. BT present and is passing flatus. Indwelling catheter is patent; urine is clear, light yellow (plan is to remove in the morning). Dressings to anterior/posterior neck are intact with serosanguinous drainage on posterior dressing previously outlined; no new drainage noted. Is wearing soft cervical collar for comfort. Denies pain. Able to move herself in bed. Gait not assessed but reportedly gets up with walker and SBA. Reports continued numbness in left UE from shoulder to elbow; arm is also weak. CMS intact except for left UE. Wearing bilateral calf SCD's. Fall risk score is moderate and bed alarm is activated.
[2020-03-31] MEDS: LEVOTHYROXINE 50 MCG TABLET PO (05:36)
[2020-03-31 05:39] VITALS: BP 124/55; PULSE 76; RESP 18; TEMP 36.4; O2SAT 95
--- NOTE | 2020-03-31 07:08 | P.PN_ITS ---
Subjective Subjective Date Patient Seen: 03/31/20 Time Patient Seen: 07:08 Interval history: She is doing much better today with pain control. Still cannot elevate the shoulder Exam Vital Signs (past 8 hours): - 03/31/20 00:00 03/31/20 05:39 Temperature 97.6 F 97.5 F L Pulse Rate 75 76 Respiratory Rate 16 18 Blood Pressure 140/65 124/55 L Pulse Oximetry 97 95 Oxygen Delivery Method Room Air Oxygen Flow Rate 0 Const Orientation: alert and oriented x3 Back/Spine/Pelvis Other: CDI. 5/5 motor both upper extremities except for 2/5 left deltoid and 5- /5 left biceps Objective Imaging CT scan lumbar spine: My impression: From 03/30/2020 shows C3 through 7 ACDF with posterior instrumentation. There is some partial foraminal narrowing from the left cage at C6-7 but otherwise everything is open. Assessment & Plan Post-op Postoperative Procedures: Procedures Operation Date: 03/29/20 07:45 Actual Procedures Side Surgeon p C3-7 anterior cervical discectomy & anterior/posterior instrumentated fusion w/ bone graft Turner Brown MD She has a fairly classic C5 palsy. This comes usually 1-2 days after surgery where the spinal cord realigned itself after reconstruction and the shortest nerve root, C5, stretches. It is purely a stretch/traction issue. I reassured her that this usually is temporary although can take weeks to months to come back. Otherwise everything else is doing well. Good pain control. Discharge home today. Quality VTE Deep Vein Thrombosis/Pulmonary Embolism Present on Admission: No
--- NOTE | 2020-03-31 07:29 | PM.DS.1 ---
History of Present Illness History of Present Illness Date Patient Seen: 03/31/20 Time Patient Seen: 07:30 Chief complaint: INPT Narrative: 61-year-old female with pain in the neck and radiation down the left arm. She has had off and on problems with her neck in the past but things have been severe since November. 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 She has been through therapy. Discharge Providers Provider Date of admission: 03/29/20 05:45 Discharge Date: 03/31/20 Primary care physician: Tamiko Davis DO Consults: 03/29/20 12:46 Consult to Occupational Therapy Evaluate & Treat Comment: Physician Instructions: Evaluate and treat Consult to Physical Therapy Evaluate & Treat Comment: Physician Instructions: Evaluate and Treat Consult to Speech Therapy Evaluate & Treat Comment: Status post 4 level ACDF Physician Instructions: Evaluate and treat Discharge provider: Turner Brown MD Summary Hospital Course Discharge Diagnosis: Cervical stenosis with myelopathy C5 palsy Hospital Course: She is brought to the operating room on 03/29/2020 where she underwent C3 through 7 ACDF and posterior instrumented fusion. She was not getting adequate pain control on the 1st day but we switched her to oral Dilaudid and this worked much better for her. She had full strength in her arms the day of surgery but the next morning she began getting weakness in the left arm. A CT scan was done which only showed foraminal narrowing on the left at C6-7. Everything else had been decompressed. By postoperative day 2. She had a fairly clear-cut C5 palsy with significant left deltoid weakness and a little bit of biceps weakness. The remainder of her arm strength had resolved. Status at Discharge Cognitive/behavioral status at discharge: oriented Functional status at discharge: independent ambulation Overall status at discharge: patient is not back to baseline Exam Vital Signs (past 8 hours): - 03/31/20 00:00 03/31/20 05:39 Temperature 97.6 F 97.5 F L Pulse Rate 75 76 Respiratory Rate 16 18 Blood Pressure 140/65 124/55 L Pulse Oximetry 97 95 Oxygen Delivery Method Room Air Oxygen Flow Rate 0 Const Orientation: alert and oriented x3 Back/Spine/Pelvis Other: CDI. 5/5 motor both upper extremities except 2/5 left deltoid is 5-/5 left biceps Discharge Assessment & Plan Assessment and Plan Assessment: Status post 4 level ACDF and posterior fusion. She developed a postoperative C5 palsy. It was explained to her that this is usually a temporary issue and comes from stretches the spinal cord realigns is 1-2 days after surgery but can take weeks to months to fully resolve. This is something we are just going to watch for now. Plan of Treatment: Discharge home Discharge Plan Discharge Plan Patient Disposition: Home Provider Discharge Comment: followup 1.5 wks Discharge orders & Medications Prescriptions: New docusate sodium [DOK] 100 mg Capsule 100 mg PO BID Qty: 20 RF: 0 hydromorphone 2 mg Tablet See Rx Instructions .ROUTE .COMPLEX PRN (Reason: Pain, Severe (7-10)) Qty: 25 RF: 0 hydroxyzine pamoate 25 mg Capsule 25 mg PO Q4HR PRN (Reason: spasms) Qty: 20 RF: 0 Continued acetaminophen-codeine 300-15 mg Tablet 0.5 tab PO BID PRN (Reason: Pain) RF: 0 spironolactone 25 mg Tablet 25 mg PO DAILY RF: 0 levothyroxine [Synthroid] 50 mcg Tablet 50 mcg PO DAILY RF: 0 diphenhydramine HCl [Benadryl] 25 mg Capsule 25 mg PO BEDTIME RF: 0 losartan 100 mg Tablet 100 mg PO QPM RF: 0 Follow up/Referrals: Tamiko Davis DO [Primary Care Provider] - Discharge Health Status Multidrug resistant organism: No MDRO Diet/Activity/Treatments Diet: Diet as Tolerated Activity: 10 lbs max lift, soft collar for comfort Skin/Wound/Dressing Care Report to your healthcare provider any signs of infection, such as:: chills, fever, night sweats, increased pain, unusual drainage and unusual redness Dressing: may shower up to armpits for the first 5 days after surgery. On Saturday you may remove the dressing and shower over the incision, replace with a clean dressing when done Visit Report/Discharge Packet Instructions: DI for Prescription Opioid Use, DI for Anterior Cervical Discectomy and Fusion Stand Alone Forms: Surgery Discharge Discharge Data Primary Care Provider: Tamiko Davis Quality VTE Deep Vein Thrombosis/Pulmonary Embolism Present on Admission: No
[2020-03-31 08:00] VITALS: BP 137/72; PULSE 79; RESP 16; TEMP 36.3; O2SAT 94
[2020-03-31] MEDS: HYDROMORPHONE 2 MG TABLET PO (08:58)
[2020-03-31] MEDS: SPIRONOLACTONE 25 MG TABLET PO (08:58)
[2020-03-31] MEDS: DOCUSATE 100 MG CAPSULE PO (08:58)
--- NOTE | 2020-03-31 09:33 | OT.IP.TRT ---
Current Diagnoses Spinal stenosis, cervical region (03/29/20) Surgery Performed Operation Date: 03/29/20 07:45 Actual Procedures p C3-7 anterior cervical discectomy & anterior/posterior instrumentated fusion w/ bone graft - Turner Brown MD Occupational Therapy Treatment Note M3 OT- IP Subjective and Pain Start: 03/30/20 15:24 Freq: Status: Active Protocol: Document 03/31/20 12:10 [facility] (Rec: 03/31/20 12:20 [facility] [id number]) OT- Subjective Occupational Therapy Visit Type Type Treatment Note Visit Start Time 09:33 Visit Stop Time 10:05 Total Visit Minutes 32 Occupational Therapy Visit Comments Patient Comments Pt wanting to get dressed, in the room for caregiver training. Patient/Caregiver Goals TO go home. OT Pain Assessment Pain When Pain Assessed At Rest Pain Present Pain Present Denied Pain M4 OT- IP ADL's Start: 03/30/20 15:24 Freq: Status: Active Protocol: Document 03/31/20 12:10 [facility] (Rec: 03/31/20 12:20 [facility] [id number]) OT [id number] Comments OT Self-Feeding Comments NOt at meal time. OT ADL-Dressing General Eval Lower Body Dressing Ability Minimal Assistance,Maximum Assistance Comments OT Dressing Comments Able to show and issue pt LB dressing equipment to increase ease and safety while following her cervical precautions. OT ADL-Toileting General Evaluation Toileting Ability Standby Assistance Comments OT Toileting Comments Pt able to toilet on her own with distant SBA. OT ADL-Bathing Comments OT Bathing Comments Pt states to shower at home. M6 OT- IP Functional Cognition Start: 03/30/20 15:24 Freq: Status: Active Protocol: Document 03/31/20 12:10 [facility] (Rec: 03/31/20 12:20 [facility] [id number]) Cognitive Factors Limiting Selfcare Function Cognitive Ability Level of Alertness Alert Patient Orientation Name,Place,Situation Attention Span Ability Capable of Focused Attention, Capable of Sustained Attention Ability to Follow Commands Able to Follow One Step Commands Safety Awareness Decreased Ability to Apply Precautions,Underestimates Need for Assistance Cognitive Comments Cognitive Assessment Comments Pt a bit impulsive and needing cues to slow down. Pt trying to flush the toilet with her foot. Educated pt to be careful and not take unnecessary risk that may result in a fall. M7 OT- IP Mobility and Balance Start: 03/30/20 15:24 Freq: Status: Active Protocol: Document 03/31/20 12:10 [facility] (Rec: 03/31/20 12:20 [facility] [id number]) OT- Bed Mobility Assessment Supine to Sit Supine to Sit Assist Minimal Assistance,1 Person Assistance OT-Transfer Assessment Sit to and From Stand Sit to and from Stand Contact Guard Assistance Transfers Transfer Ability Contact Guard Assistance Technique Transfer Destination Bed,Chair,Toilet Devices Transfer Assistive Devices Gait Belt,Front Wheeled Walker Comments Mobility Comments Pt's able to assist pt out of the bed and reminded to hold her by the gait belt versus arm for safety. Pt's needing to help remind pt's what to do at times . OT- Gait Assessment Comments Gait Ability Comments CGA-SBA with FWW. OT- Balance Assessment Sitting Balance and Reactions Static Sitting Balance Ability Normal Dynamic Sitting Balance Ability Good Standing Balance and Reactions Static Standing Balance Ability Fair M9 OT- IP Assessment and Plan Start: 03/30/20 15:24 Freq: Status: Active Protocol: Document 03/31/20 12:10 [facility] (Rec: 03/31/20 12:20 [facility] [id number]) OT Summary Assessment and Plan Potential Rehabilitation Potential Good Analytic Complexity at Evaluation Low Summary Progress Towards Goals Progressing Toward Goals Assessment Summary Pt still a little impulsive and needs vc to slow down and incorporate her cervical precautions. Pt to go home with her who can assist her. Discharge Recommendations OT Discharge Recommendations Home with Assistance Home Equipment Needs grab bar in shower, possibly tub bench Transportation Needs at Discharge Private Vehicle
--- NOTE | 2020-03-31 10:16 | PT.IPTN ---
Current Diagnoses Spinal stenosis, cervical region (03/29/20) Surgery Performed Operation Date: 03/29/20 07:45 Actual Procedures p C3-7 anterior cervical discectomy & anterior/posterior instrumentated fusion w/ bone graft - Turner Brown MD Physical Therapy Treatment Note M2 PT-IP Current Condition Start: 03/29/20 14:40 Freq: NEEDED Status: Discharge Protocol: Document 03/30/20 09:15 AB (Rec: 03/30/20 10:36 AB [id number]) Physical Therapy Current Condition Current Condition Evaluation Date 03/30/20 Treatment Diagnosis s/p C3-4,C4-5,C5-6, C6-7 fusion; difficulty in walking Onset Date 03/29/20 Precautions Cervical Spine Precautions Soft Collar for Comfort,No Heavy Lifting,Log Roll M3 PT-IP Subjective Start: 03/29/20 14:40 Freq: NEEDED Status: Discharge Protocol: Document 03/31/20 10:00 KS (Rec: 03/31/20 13:13 KS [id number]) Subjective Physical Therapy Visit Type Type Treatment Note Visit Start Time 10:00 Visit Stop Time 10:16 Total Visit Minutes 16 Number of [employer] Visits 2 Physical Therapy Visit Comments Patient Comments Pt agreeable to working w/ therapy. present for caregiver training. M4 PT-IP Mobility and Gait Start: 03/29/20 14:40 Freq: NEEDED Status: Discharge Protocol: Document 03/31/20 10:00 KS (Rec: 03/31/20 13:13 KS [id number]) PT-Bed Mobility Assessment Rolling Type of Rolling Log Rolling,Roll to Right Level of Assist Standby Assistance Supine to Sit Supine to Sit Standby Assistance Sit to Supine Sit to Supine Standby Assistance Scooting Scooting to Edge of Bed Standby Assistance PT-Transfer Assessment Sit to and From Stand Sit to and from Stand Standby Assistance,1 Person Assistance,Use of Upper Extremities Equipment Transfer Assistive Device Gait Belt,Front Wheeled Walker Orthotic/Prosthetic Devices or Brace: No Transfers Transfer Destination Bed Transfer Technique ambulated using FWW Transfer Ability Level of Assist Standby Assistance,Contact Guard Assistance,Use of Upper Extremities Comments Mobility Comments Pt in chair upon arrival from therapy. Pts applied gait belt w/ cues. Pt SBA for sit<>stand w/ FWW. She then ambulated ~60 ft to stairs SBA w/ FWW. Pt ascended/descended 3 teps w/ L rail and CGA provided by . Pts was able to provide pt w/ CGA w/ cues from therapist . Pts then provided SBA to CGA to pt while ambulating back to room. Pt performed bed mobility upon return, SBA for logroll and sup<>sit. Pt and state they feel safe to return home . Gait Assessment Gait Gait Assistance Required: Standby Assistance,Contact Guard Assist,1 Person Assist Distance (Feet) 120 Able to Maintain Weight Bearing Status Yes During Gait Assistive Devices Assistive Device Gait Belt,Front Wheeled Walker Orthotic/Prosthetic Devices or Brace: No Gait Deviations General Gait Pattern Antalgic,Decreased Stride Length,Decreased Feet Clearance,Lateral Trunk Lean Factors Limiting Gait Function Factors Limiting Gait Function Decreased Activity Tolerance, Decreased Sensation,Decreased Strength,Limited Range of Motion,Poor Balance,Poor Safety Awareness Comments Gait Comments See mobility comments Stair Climbing Assessment Evaluation Level of Assist On Stairs Contact Guard Assistance,1 Person Assistance Devices Stair Climbing Assistive Devices Left Railing Technique/Endurance Stair Climbing Direction Ascend and Descend Stair Climbing Technique Step Over Step Number of Steps Climbed 3 Stair Climbing Set # Repetitions (reps) 1 Comments Stair Climbing Comments Pt ascended/descended 3 steps w/ L rail step over step and CGA. Pts provided proper CGA w/ cues from therapist. Pt and state they feel safe to complete steps at home. PT-Balance Assessment Sitting Balance and Reactions Static Sitting Balance Ability Good Dynamic Sitting Balance Ability Good Standing Balance and Reactions Static Standing Balance Ability Fair Dynamic Standing Balance Ability Fair Device Used FWW M5 PT-IP Objective Assessments Start: 03/29/20 14:40 Freq: NEEDED Status: Discharge Protocol: Document 03/30/20 09:15 AB (Rec: 03/30/20 10:36 AB [email or web address]) Orientation Orientation/Cognition Level of Alertness Alert Orientation Name,Place,Situation Language Function Ability No Deficits Noted Safety Awareness Understands Safety Issues Memory Description No Deficits Noted Gross Range of Motion Lower Extremity ROM Assessment Within Functional Limits Strength Lower Extremity Strength Assessment Within Functional Limits Sensation Assessment Sensation Gross Sensation Left UE Impaired Sensation Description Pain Comments Sensation Comments when asked what type of pain and pt stated all of the above M6 PT-IP Treatment Start: 03/29/20 14:40 Freq: NEEDED Status: Discharge Protocol: Document 03/31/20 10:00 KS (Rec: 03/31/20 13:13 KS [id number]) Physical Therapy Treatment Education Education Provided Precautions,Safety M7 PT-IP Assessment and Plan Start: 03/29/20 14:40 Freq: NEEDED Status: Discharge Protocol: Document 03/31/20 10:00 LORENZO (Rec: 03/31/20 13:13 KS [id number]) PT Summary Assessment and Plan Potential Rehabilitation Potential Good Status of Condition at Evaluation Evolving Summary Impairments Pain,ROM,Strength,Balance, Coordination,Sensation,Tone, Bed Mobility,Transfers,Gait, Activity Tolerance Progress Towards Goals Progressing Toward Goals Assessment Summary Pt SBA for bed mobility, transfers, SBA to CGA for ambulation and stairs. Completed caregiver training w / pts who was able to apply gaitbelt and provide assist to pt when needed. Pt ambulated ~120 ft w/ FWW and ascended/descended 3 steps w/ L rail step over step. Pt and state they feel safe to return home. Goals Bed Mobility Goal Independent Transfer Goal Independent,Front Wheeled Walker Gait Goal Independent,Front Wheel Walker Gait Distance 200 Other Goals ambulation without AD SBA 150 ft up/down 2 steps wtihout rails SBA Days to Meet Goals 5 Frequency of Treatment Frequency Of Treatment Twice a Day Treatment Plan Physical Therapy Treatment Plan Bed Mobility Training,Transfer Training,Gait Training, Therapeutic Exercise,Balance Retraining,Post Op Education, Discharge Planning,Hot or Cold Pack,Neuromuscular Re-ed, Coordination Retraining,Manual Therapy Other Recommendations and Next Treatment ambulation, caregiver trng and Focus stairs in am ask spouse when plans to be here 03/31/20 Recommendations To Nursing Amount of Assist Needed 1 Person Assist Discharge Recommendations PT Discharge Recommendations Home with Assistance,Home Health,SNF Rehab Other Discharge Recommendations depending on progress: SNF vs home with assist and HHPT Transportation Needs at Discharge Private Vehicle,Wheelchair/ Cabulance
--- NOTE | 2020-03-31 10:42 | PC.NURSE ---
Patient is going to discharge home today. Her back neck dressing has been changed, front anterior neck dressing is cdi. Patient still complains of numbness to l.arm, given 2mg of po dilaudid for discomfort. in room. Patient showered and PT/OT has worked with her. in room and patient is going to be going home shortly.
--- NOTE | 2020-03-31 14:18 | CM.DPNOTE ---
DC Note Patient DC home today w/spouse to assist. No HH needed, patient would like to f/u outpatient if ordered from [facility]
== END 2020-03-31 10:57 | disposition home or self-care (01) | DRG 454 ==
PROVIDERS: Admitting Provider Orthopaedic Surgery; PCP Family Medicine; Referring Provider Family Medicine; Visit Provider Orthopaedic Surgery
PROC: 0RG20A0 Fusion of 2 or more Cervical Vertebral Joints with Interbody Fusion Device, Anterior Approach, Anterior Column, Open Approach (ICD-10-PCS; principal; 2020-03-29 07:45)
DX: M48.02 Spinal stenosis, cervical region (principal); G95.20 Unspecified cord compression; G54.2 Cervical root disorders, not elsewhere classified; I10 Essential (primary) hypertension; K21.9 Gastro-esophageal reflux disease without esophagitis; E07.9 Disorder of thyroid, unspecified; Z87.891 Personal history of nicotine dependence; Z11.59 Encounter for screening for other viral diseases
CPT/HCPCS: 72040; 72125; 76000; 87635; 97116; 97162; 97165; 97530; 97535; C1776; J0330; J1100; J1170; J2405; J2704; J3010

== ENCOUNTER 2021-03-17 18:00 | Emergency (ER) | payer MEDICARE, OTHER, SELFPAY ==
[2020-03-29 13:00] VITALS: BMI 25.9
[2021-03-17] VITALS (16 sets, daily range): BP systolic 136–197; BP diastolic 63–84; PULSE 75–79; RESP 12–25; TEMP 36.6; O2SAT 96–99; BMI 26.9
--- NOTE | 2021-03-17 18:13 | DI.RAD.S_ITS ---
PROCEDURE: XR CHEST 1V INDICATIONS: chest pain TECHNIQUE: One view of the chest was acquired. COMPARISON: [facility], , CHEST 2 VIEW, 08/31/2017, 9:14. FINDINGS: Surgical changes and devices: Low-profile discectomy and fusion lower cervical spine noted. Surgical clips present in the right upper quadrant. Lungs and pleura: Lungs are clear. No pleural effusions or pneumothorax. Mediastinum: Mediastinal contours appear normal. Heart size is normal. Bones and chest wall: No suspicious bony lesions. Overlying soft tissues appear unremarkable. Generalized decrease in osseous mineralization noted. IMPRESSION: No acute cardiopulmonary findings Approved by: Hoang Whitman M.D. on 03/17/2021 at 17:48
[2021-03-17 18:35] LABS: Add Manual Diff / Slide Review NO; Basophils Absolute Auto 100 /uL (0-100); Basophils Percent Auto 0.7 % (0-2); Eosinophils Absolute Auto 100 /uL (0-450); Eosinophils Percent Auto 0.8 % (2-4); Hematocrit 41.8 % (36-46); Hemoglobin 14.4 g/dL (12.0-16.0); Lymphocytes Absolute Auto 2200 /uL (1100-4500); Lymphocytes Percent Auto 28.1 % (25-40); Mean Corpuscular HGB Conc 34.3 % (30-36); Mean Corpuscular Hemoglobin 29.9 PG (26-34); Mean Corpuscular Volume 87.1 fL (80-100); Monocytes Absolute Auto 500 /uL (0-900); Monocytes Percent Auto 6.3 % (3-14); Neutrophils Absolute Auto 5000 /uL (1500-7000); Neutrophils Percent Auto 64.1 % (50-75); Platelet Count 303 X10^3/uL (150-400); Red Cell Distribution Width 13.5 % (11.6-14.8); White Blood Cell Count 7.9 X10^3/uL (4.5-11.0)
[2021-03-17 18:48] LABS: Alanine Aminotransferase 22 IU/L (<35); Albumin 4.8 g/dL (3.5-5.0); Albumin Globulin Ratio 1.3 (1.0-2.8); Alkaline Phosphatase 80 U/L (38-126); Aspartate Aminotransferase 26 IU/L (14-36); BUN Creatinine Ratio 17.1 (6-22); Bilirubin Total 0.6 mg/dL (0.2-1.3); Blood Urea Nitrogen 14 mg/dL (7-17); Carbon Dioxide 26 mmol/L (22-32); Chloride 95 mmol/L (98-107); Creatine Kinase 82 U/L (30-135); Estimated Glomerular Filt Rate > 60.0 mL/min (>60); Globulin 3.6 g/dL (1.7-4.1); Glucose 130 mg/dL (80-110); HEMOLYSIS < 15 (0-50); Lipase 268 U/L (23-300); Potassium 4.2 mmol/L (3.4-5.1); Sodium 131 mmol/L (137-145); Total Protein 8.4 g/dL (6.3-8.2)
[2021-03-17 19:00] LABS: Troponin I < 0.012 ng/mL (0.01-0.034)
[2021-03-17 21:09] LABS: Troponin I < 0.012 ng/mL (0.01-0.034)
--- NOTE | 2021-03-17 23:11 | ED.CHESTPAIN ---
HPI - Chest Pain General Chief Complaint: Chest Pain Stated Complaint: Chest Heaviness,Back Pain, Chills,Sweating,Nausea Time Seen by Provider: 03/17/21 18:16 Source: patient and family Mode of arrival: Ambulatory Limitations: no limitations History of Present Illness HPI narrative: 70-year-old woman with history of diet-controlled diabetes, hypertension, hypothyroidism presents with complaints of chest pain heaviness decreased appetite and mild nausea that started mid day. She describes no known dyspnea no diaphoresis. The pain waxed and waned over the course of the afternoon with a sense of fullness and heaviness. Her blood pressure at home was elevated at 170 7/93 and that is what precipitated the emergency room evaluation. She finds that positioning does seem to make a nice difference the pain seems to be in the upper portion of her chest. She had cervical spinal surgery about a year ago and occasionally still has radicular arm symptoms all of which has been a bit more troublesome for her today. She has not had a cough, fevers she did have some mild nausea that got better with lunch but no vomitin. Describes no abdominal pain dysuria or diarrhea. She had a treadmill test in January of 2019 that was interpreted is essentially normal. She states that she had a nuclear medicine study but I am not finding access to that she describes at the time it was normal. She had previously been on losartan, spironolactone and hydralazine but was having episodes of hypotension. Her primary care doctor has discontinued the hydralazine she had been doing well with home blood pressure readings until today typically in the 120-130 systolic range. Related Data Home Medications Medication Instructions Recorded Confirmed acetaminophen 300 mg-codeine 15 mg 0.5 tab PO BID PRN 03/25/20 03/29/20 tablet diphenhydramine HCl 25 mg capsule 25 mg PO BEDTIME 03/25/20 03/29/20 (Benadryl) levothyroxine 50 mcg tablet 50 mcg PO DAILY 03/25/20 03/29/20 (Synthroid) losartan 100 mg tablet 100 mg PO QPM 03/25/20 03/29/20 spironolactone 25 mg tablet 25 mg PO DAILY 03/25/20 03/29/20 Previous Rx's Medication Instructions Recorded docusate sodium 100 mg capsule 100 mg PO BID #20 cap 03/31/20 (DOK) hydromorphone 2 mg tablet See Rx Instructions .ROUTE 03/31/20 .COMPLEX PRN #25 tab hydroxyzine pamoate 25 mg capsule 25 mg PO Q4HR PRN #20 cap 03/31/20 Allergies Allergy/AdvReac Type Severity Reaction Status Date / Time adhesive tape Allergy Severe Tearing, Verified 03/25/20 09:13 pulling off of skin iodine [IODINE] Allergy Severe Rash Verified 03/29/20 07:02 Sulfa (Sulfonamide Allergy Severe Big acne, Verified 03/25/20 09:13 Antibiotics) boils Penicillins Allergy Intermediate Rash Verified 03/25/20 09:13 Review of Systems Review of Systems Narrative: Remainder of complete review of systems is otherwise unremarkable except for that included in the HPI. Patient History Medical History Allergic rhinitis Arthritis Esophageal dysmotility GERD (gastroesophageal reflux disease) Hearing loss HTN (hypertension) Hypercholesterolemia Hypothyroid IBS (irritable bowel syndrome) Pre-diabetes Psoriasis RLS (restless legs syndrome) Spinal stenosis Surgical History History of section Hx of appendectomy Hx of bilateral cataract extraction Hx of cholecystectomy Hx of dilation and curettage Hx of eye surgery Hx of sinus surgery Hx of tubal ligation Social History household members: spouse Smoking Status: Former smoker alcohol intake: former Smoking Status: Former smoker alcohol intake frequency: holidays/special occasions only Substance Use Type: does not use Exam Narrative Exam Narrative: General: Healthy appearing, in no acute distress. Able to give a complete and coherent history. Well-nourished well-developed HEENT: Moist mucous membranes, normal sclera with reactive pupils, Neck: No JVD, mild paraspinous muscle tenderness radiating down into the upper chest with palpation. She describes that as painful however not the same as the chest tightness heaviness that precipitated her ER visit today. Respiratory: Lungs are clear to auscultation, no wheezing no rales no rhonchi. Full and symmetrical air movement Cardiac: Regular rate and rhythm no murmurs no bruits Abdomen: Soft, nontender, good bowel tones, no flank pain Skin: Warm and dry, no rashes Neurologic: Grossly neurologically intact with no obvious asymmetries or abnormalities Extremities: No trauma, well perfused Psych: Cooperative, appropriate insight and affect Initial Vital Signs Initial Vital Signs: Vital Signs Temperature 98 F 03/17/21 18:09 Pulse Rate 79 03/17/21 18:09 Respiratory Rate 18 03/17/21 18:09 Blood Pressure 197/84 H 03/17/21 18:09 Pulse Oximetry 97 03/17/21 18:09 Course Orders Ordered: ED Orders 03/17/21 18:13 XR chest 1V Stat EKG-12 Lead Stat 03/17/21 18:25 Complete Blood Count AUTO DIFF Stat Comprehensive Metabolic Panel Stat Lipase Stat Troponin & CK Cardiac Panel Stat 03/17/21 20:33 Troponin I Stat Vital Signs Vital signs: Vital Signs - 8 hr 03/17/21 18:09 03/17/21 19:26 03/17/21 19:45 Temperature 98 F Pulse Rate 79 79 77 Respiratory Rate 18 18 25 H Blood Pressure 197/84 H 141/67 H Pulse Oximetry 97 99 97 03/17/21 19:46 03/17/21 20:00 03/17/21 20:23 Temperature Pulse Rate 76 77 78 Respiratory Rate 18 13 17 Blood Pressure 136/63 142/67 H 194/84 H Pulse Oximetry 98 96 96 03/17/21 20:24 03/17/21 20:28 03/17/21 20:30 Temperature Pulse Rate 76 77 76 Respiratory Rate 19 18 22 Blood Pressure 190/76 H 190/76 H 156/70 H Pulse Oximetry 97 96 97 03/17/21 21:00 03/17/21 21:03 03/17/21 21:30 Temperature Pulse Rate 78 75 79 Respiratory Rate 18 17 Blood Pressure 176/74 H 173/79 H Pulse Oximetry 98 98 99 03/17/21 22:00 03/17/21 22:30 Temperature Pulse Rate 79 76 Respiratory Rate 12 17 Blood Pressure 164/72 H 159/74 H Pulse Oximetry 98 97 MDM - Chest Pain Lab Data Result diagrams: 03/17/21 18:25 03/17/21 18:25 Labs: Lab Results 03/17/21 03/17/21 03/17/21 Range/Units 18:25 18:25 20:33 WBC 7.9 (4.5-11.0) X10^3/uL RBC 4.80 (4.0-5.2) X10^6/uL Hgb 14.4 (12.0-16.0) g/dL Hct 41.8 (36-46) % MCV 87.1 (80-100) fL MCH 29.9 (26-34) PG MCHC 34.3 (30-36) % RDW 13.5 (11.6-14.8) % Plt Count 303 (150-400) X10^3/uL Neut % (Auto) 64.1 (50-75) % Lymph % (Auto) 28.1 (25-40) % Rowan % (Auto) 6.3 (3-14) % Eos % (Auto) 0.8 L (2-4) % Baso % (Auto) 0.7 (0-2) % Neut # (Auto) 5000 (5589-2645) /uL Lymph # (Auto) 2200 (2944-2106) /uL Rowan # (Auto) 500 (0-900) /uL Eos # (Auto) 100 (0-450) /uL Baso # (Auto) 100 (0-100) /uL Sodium 131 L (137-145) mmol/L Potassium 4.2 (3.4-5.1) mmol/L Chloride 95 L (98-107) mmol/L Carbon Dioxide 26 (22-32) mmol/L BUN 14 (7-17) mg/dL Creatinine 0.82 (0.52-1.04) mg/dL Estimated GFR > 60.0 (>60) mL/min BUN/Creatinine Ratio 17.1 (6-22) Glucose 130 H (80-110) mg/dL Calcium 10.0 (8.4-10.2) mg/dL Total Bilirubin 0.6 (0.2-1.3) mg/dL AST 26 (14-36) IU/L ALT 22 (<35) IU/L Alkaline Phosphatase 80 (38-126) U/L Total Creatine Kinase 82 (30-135) U/L CK-MB (CK-2) TNP CK-MB (CK-2) Rel Index TNP Troponin I < 0.012 < 0.012 (0.01-0.034) ng/mL Total Protein 8.4 H (6.3-8.2) g/dL Albumin 4.8 (3.5-5.0) g/dL Globulin 3.6 (1.7-4.1) g/dL Albumin/Globulin Ratio 1.3 (1.0-2.8) Lipase 268 (23-300) U/L Imaging Data Chest x-ray: Radiologist's Impression: FINDINGS:? ? Surgical changes and devices:? Low-profile discectomy and fusion lower cervical spine noted.? Surgical clips present in the right upper quadrant. ? Lungs and pleura:? Lungs are clear.? No pleural effusions or pneumothorax.? ? Mediastinum:? Mediastinal contours appear normal.? Heart size is normal.? ? Bones and chest wall:? No suspicious bony lesions.? Overlying soft tissues appear unremarkable.? Generalized decrease in osseous mineralization noted. ? IMPRESSION:? ? No acute cardiopulmonary findings ? ? ? Approved by: Hoang Whitman M.D. on 03/17/2021 at 17:48? ECG Data Interpretation: Sinus rhythm at a rate of 79 Normal axis, normal intervals No acute ischemic changes MDM Narrative Medical decision making narrative: 70-year-old woman with chest pressure and tightness today. Unclear if this is radicular neck pain, musculoskeletal pain, all iscertainly associated with some anxiety. initial EKG is very reassuring. troponin x2 are within normal limits. No evidence abnormalities on chest x-ray no suggestion of infection low risk for pulmonary embolism. Blood pressure was slightly elevated. I gave her an extra dose of her losartan, 100 mg this evening. At this point I do not think that this is acute coronary syndrome or a life-threatening etiology and she is going to be safe for home discharge. I did ask her to continue her usual blood pressure medications and continue to keep track of daily blood pressures to review with her primary care physician on Saturday. At some point she may benefit from further outpatient cardiac stress testing for further risk stratification. Discharge Plan Departure Patient Disposition: Home Clinical Impression: Atypical chest pain, Hypertension Instructions: DI for Atypical Chest Pain Activity Restrictions/Additional Instructions: Thank you for coming in today Your workup is very reassuring. I did not find any evidence for heart attack, chest infection or reasons that you might need to be hospitalized this evening. Please continue your usual blood pressure medications and do check blood pressures over the weekend. I would recommend that you talk with your primary care physician about your emergency room visit and review your blood pressures. If you feel that things are getting worse or dramatically changing do return to the emergency department. Prescriptions: No Action acetaminophen-codeine 300-15 mg Tablet 0.5 tab PO BID PRN (Reason: Pain) RF: 0 spironolactone 25 mg Tablet 25 mg PO DAILY RF: 0 levothyroxine [Synthroid] 50 mcg Tablet 50 mcg PO DAILY RF: 0 diphenhydramine HCl [Benadryl] 25 mg Capsule 25 mg PO BEDTIME RF: 0 losartan 100 mg Tablet 100 mg PO QPM RF: 0 docusate sodium [DOK] 100 mg Capsule 100 mg PO BID Qty: 20 RF: 0 hydromorphone 2 mg Tablet See Rx Instructions .ROUTE .COMPLEX PRN (Reason: Pain, Severe (7-10)) Qty: 25 RF: 0 hydroxyzine pamoate 25 mg Capsule 25 mg PO Q4HR PRN (Reason: spasms) Qty: 20 RF: 0 Referrals: Tamiko Davis DO [Primary Care Provider] -
== END 2021-03-17 23:45 | disposition home or self-care (01) ==
PROVIDERS: Emergency Provider Emergency Medicine; PCP Family Medicine
DX: R07.89 Other chest pain (principal); I10 Essential (primary) hypertension; Z87.891 Personal history of nicotine dependence
CPT/HCPCS: 36415; 71045; 80053; 82550; 83690; 84484; 85025; 93005; 93010; 99283; 99284

== ENCOUNTER 2021-09-14 08:17 | Emergency (ER) | payer MEDICARE, OTHER, SELFPAY ==
[2020-03-29 13:00] VITALS: BMI 25.9
[2021-09-14] VITALS (11 sets, daily range): BP systolic 134–186; BP diastolic 63–84; PULSE 64–75; RESP 18; TEMP 36.5; O2SAT 96–100; BMI 28.0
[2021-09-14 12:15] LABS: Amorphous Sediment Urine 1+; Bacteria Urine None Seen; Culture Indicated Urine Cult Not Indicated; Mucus Urine 1+ (Negative); RBC Urine 0-1/HPF (0-5/HPF); Squamous Epithelial Cell Urine 0-1 /HPF (0-5/HPF); WBC Urine None Seen (0-5/HPF)
--- NOTE | 2021-09-14 12:50 | ED.DIZZY ---
HPI - Dizziness <Adam Toure PA-C - Last Filed: 09/14/21 19:44> General Chief Complaint: Dizziness Stated Complaint: extremely dizzy since saturday Time Seen by Provider: 09/14/21 12:07 Source: patient Mode of arrival: Wheelchair History of Present Illness HPI Narrative: Patient is a 71-year-old female presenting to the emergency department today for evaluation of dizziness since Saturday. Patient explains that she began to experience the worst episode of dizziness on Saturday, stating that she has felt increasingly more off balance. She states that she has also experienced associated left eye ?pressure and ?heaviness? in the back of the head. She explains that she has been following up with an ENT specialist who is requesting that she get allergy tested and have a CT scan of her sinuses performed. She explains she has been taking Dramamine at home to help alleviate her dizziness with no improvement in her symptoms. She endorses a history of cervical fusion surgery. She endorses associated chills, however she denies fever, chest pain, cough, shortness of breath, nausea, vomiting, diarrhea, constipation, abdominal pain, dysuria, hematuria, syncope, diaphoresis, or any other concerning symptoms. No further concerns were voiced at this time. Related Data Home Medications Medication Instructions Recorded Confirmed acetaminophen 300 mg-codeine 15 mg 0.5 tab PO BID PRN 03/25/20 03/29/20 tablet diphenhydramine HCl 25 mg capsule 25 mg PO BEDTIME 03/25/20 03/29/20 (Benadryl) levothyroxine 50 mcg tablet 50 mcg PO DAILY 03/25/20 03/29/20 (Synthroid) losartan 100 mg tablet 100 mg PO QPM 03/25/20 03/29/20 spironolactone 25 mg tablet 25 mg PO DAILY 03/25/20 03/29/20 Previous Rx's Medication Instructions Recorded docusate sodium 100 mg capsule 100 mg PO BID #20 cap 03/31/20 (DOK) hydromorphone 2 mg tablet See Rx Instructions .ROUTE 03/31/20 .COMPLEX PRN #25 tab hydroxyzine pamoate 25 mg capsule 25 mg PO Q4HR PRN #20 cap 03/31/20 Allergies Allergy/AdvReac Type Severity Reaction Status Date / Time adhesive tape Allergy Severe Tearing, Verified 03/25/20 09:13 pulling off of skin iodine [IODINE] Allergy Severe Rash Verified 03/29/20 07:02 Sulfa (Sulfonamide Allergy Severe Big acne, Verified 03/25/20 09:13 Antibiotics) boils Penicillins Allergy Intermediate Rash Verified 03/25/20 09:13 Review of Systems <Adam Toure PA-C - Last Filed: 09/14/21 19:44> Constitutional Constitutional: Reports chills, Denies fatigue, Denies fever(s), Denies frequent falls, Reports headache(s), Denies lethargy and Denies weakness Eyes Eyes: Denies loss of vision and Reports eye pain (Left eye) ENT Ears, Nose, Mouth, and Throat: Reports dizziness, Reports headache(s) and Denies neck pain Cardiovascular Cardiovascular: Denies chest pain, Denies irregular heart rhythm, Denies lightheadedness, Denies palpitations, Denies dyspnea, Denies dyspnea on exertion and Denies orthopnea Respiratory Respiratory: Denies cough, Denies dyspnea, Denies dyspnea on exertion and Denies wheezing Gastrointestinal Gastrointestinal: Denies abdominal pain, Denies change in bowel habits, Denies diarrhea, Denies nausea and Denies vomiting Genitourinary Genitourinary: Denies hematuria, Denies flank pain, Denies urinary incontinence and Denies urinary urgency Musculoskeletal Musculoskeletal: Denies back pain, Denies muscle weakness, Denies neck pain, Denies numbness and Denies tingling Integumentary/Breasts Skin/Breast: Denies pruritus, Denies erythema, Denies rash and Denies wounds Neurologic Neurologic: Denies behavioral changes, Denies confusion, Reports dizziness, Denies frequent falls, Reports headache(s), Denies loss of vision, Denies numbness, Denies tingling and Denies weakness Psychiatric Psychiatric: Denies behavioral changes and Denies confusion Endocrine Endocrine: Denies fatigue and Denies palpitations Allergic/Immunologic Allergic/Immunologic: Denies wheezing Patient History <Adam Toure PA-C - Last Filed: 09/14/21 19:44> Medical History Allergic rhinitis Arthritis Esophageal dysmotility GERD (gastroesophageal reflux disease) Hearing loss HTN (hypertension) Hypercholesterolemia Hypothyroid IBS (irritable bowel syndrome) Pre-diabetes Psoriasis RLS (restless legs syndrome) Spinal stenosis Surgical History History of section Hx of appendectomy Hx of bilateral cataract extraction Hx of cholecystectomy Hx of dilation and curettage Hx of eye surgery Hx of sinus surgery Hx of tubal ligation Social History household members: spouse Smoking Status: Former smoker alcohol intake: former Smoking Status: Former smoker alcohol intake frequency: holidays/special occasions only Substance Use Type: does not use Exam <Adam Toure PA-C - Last Filed: 09/14/21 19:44> Narrative Exam Narrative: GENERAL: 71 year old patient appears stated age. Well-developed patient, in no acute distress. Patient dizzy while sitting up. HEAD: Atraumatic. Normocephalic. EYES: Pupils equal round and reactive. Extraocular motions intact. No scleral icterus. No injection or drainage. No nystagmus appreciated during H in space test. ENT: Nose without bleeding, purulent drainage. Throat without erythema, tonsillar hypertrophy or exudate. Airway patent. NECK: Trachea midline. Non tender CARDIOVASCULAR: Regular rate and rhythm without murmurs, gallops, or rubs. RESPIRATORY: Clear to auscultation. Breath sounds equal bilaterally. No wheezes, rales, or rhonchi. GASTROINTESTINAL: Abdomen soft, non-tender, nondistended. EXTREMITIES: No edema or joint tenderness. BACK: Nontender without deformity or crepitance. No flank tenderness. NEURO: AOx3. SKIN: No rash or erythema of visible areas Initial Vital Signs Initial Vital Signs: Vital Signs Temperature 97.7 F 09/14/21 08:30 Pulse Rate 67 09/14/21 08:30 Respiratory Rate 18 09/14/21 08:30 Blood Pressure 145/70 H 09/14/21 08:30 Pulse Oximetry 97 09/14/21 08:30 Course <Adam Toure PA-C - Last Filed: 09/14/21 19:44> Course Course Narrative: CBC, CMP, TSH, troponin, urinalysis, EKG, CTA of head and neck obtained. Orders Ordered: ED Orders 09/14/21 12:08 EKG-12 Lead Stat 09/14/21 12:47 CBC Auto Diff [Complete Blood Count AUTO DIFF] Stat CMP [Comprehensive Metabolic Panel] Stat TSH [Thyroid Stimulating Hormone] Stat Troponin & CK Cardiac Panel Stat 09/14/21 13:26 CT angio head and neck Stat Discontinued Medications Scopolamine (Scopolamine 1 Patch) 1 patch TOP NOW ONE Stop: 09/14/21 13:04 Last Admin: 09/14/21 13:12 Dose: 1 patch Documented by: ASEXTO Vital Signs Vital signs: Vital Signs - 8 hr 09/14/21 13:00 09/14/21 13:16 09/14/21 13:30 Pulse Rate 70 74 Respiratory Rate Blood Pressure 140/64 147/75 H Pulse Oximetry 96 98 98 09/14/21 13:52 09/14/21 14:00 09/14/21 15:08 Pulse Rate 71 71 75 Respiratory Rate 18 18 Blood Pressure 158/68 H 138/63 134/84 Pulse Oximetry 99 100 98 MDM - Dizziness <Adam Toure PA-C - Last Filed: 09/14/21 19:44> Lab Data Result diagrams: 09/14/21 12:47 09/14/21 12:47 Labs: Lab Results 09/14/21 09/14/21 09/14/21 Range/Units 11:25 12:47 12:47 WBC 8.5 (4.5-11.0) X10^3/uL RBC 5.09 (4.0-5.2) X10^6/uL Hgb 15.1 (12.0-16.0) g/dL Hct 44.5 (36-46) % MCV 87.3 (80-100) fL MCH 29.7 (26-34) PG MCHC 34.1 (30-36) % RDW 13.6 (11.6-14.8) % Plt Count 307 (150-400) X10^3/uL Neut % (Auto) 62.5 (50-75) % Lymph % (Auto) 29.2 (25-40) % [place] % (Auto) 6.1 (3-14) % Eos % (Auto) 1.0 L (2-4) % Baso % (Auto) 1.2 (0-2) % Neut # (Auto) 5300 (8723-0933) /uL Lymph # (Auto) 2500 (5406-1447) /uL [place] # (Auto) 500 (0-900) /uL Eos # (Auto) 100 (0-450) /uL Baso # (Auto) 100 (0-100) /uL Sodium 133 L (137-145) mmol/L Potassium 4.5 (3.4-5.1) mmol/L Chloride 97 L (98-107) mmol/L Carbon Dioxide 26 (22-32) mmol/L BUN 16 (7-17) mg/dL Creatinine 0.86 (0.52-1.04) mg/dL Estimated GFR > 60 (>60) mL/min BUN/Creatinine Ratio 18.6 (6-22) Glucose 117 H (80-110) mg/dL Calcium 9.7 (8.4-10.2) mg/dL Total Bilirubin 0.9 (0.2-1.3) mg/dL AST 35 (14-36) IU/L ALT 34 (<35) IU/L Alkaline Phosphatase 70 (38-126) U/L Total Creatine Kinase (30-135) U/L CK-MB (CK-2) CK-MB (CK-2) Rel Index Troponin I (0.01-0.034) ng/mL Total Protein 8.6 H (6.3-8.2) g/dL Albumin 4.9 (3.5-5.0) g/dL Globulin 3.7 (1.7-4.1) g/dL Albumin/Globulin Ratio 1.3 (1.0-2.8) TSH (0.47-4.68) uIU/mL Urine RBC 0-1/hpf (0-5/HPF) Urine WBC None seen (0-5/HPF) Ur Squamous Epith Cells 0-1 /hpf (0-5/HPF) Amorphous Sediment 1+ Urine Bacteria None seen (None) Urine Mucus 1+ H (Negative) Ur Culture Indicated? Cult not indicated 09/14/21 09/14/21 Range/Units 12:47 12:47 WBC (4.5-11.0) X10^3/uL RBC (4.0-5.2) X10^6/uL Hgb (12.0-16.0) g/dL Hct (36-46) % MCV (80-100) fL MCH (26-34) PG MCHC (30-36) % RDW (11.6-14.8) % Plt Count (150-400) X10^3/uL Neut % (Auto) (50-75) % Lymph % (Auto) (25-40) % [place] % (Auto) (3-14) % Eos % (Auto) (2-4) % Baso % (Auto) (0-2) % Neut # (Auto) (7640-3712) /uL Lymph # (Auto) (2725-9389) /uL [place] # (Auto) (0-900) /uL Eos # (Auto) (0-450) /uL Baso # (Auto) (0-100) /uL Sodium (137-145) mmol/L Potassium (3.4-5.1) mmol/L Chloride (98-107) mmol/L Carbon Dioxide (22-32) mmol/L BUN (7-17) mg/dL Creatinine (0.52-1.04) mg/dL Estimated GFR (>60) mL/min BUN/Creatinine Ratio (6-22) Glucose (80-110) mg/dL Calcium (8.4-10.2) mg/dL Total Bilirubin (0.2-1.3) mg/dL AST (14-36) IU/L ALT (<35) IU/L Alkaline Phosphatase (38-126) U/L Total Creatine Kinase 58 (30-135) U/L CK-MB (CK-2) TNP CK-MB (CK-2) Rel Index TNP Troponin I < 0.012 (0.01-0.034) ng/mL Total Protein (6.3-8.2) g/dL Albumin (3.5-5.0) g/dL Globulin (1.7-4.1) g/dL Albumin/Globulin Ratio (1.0-2.8) TSH 3.46 (0.47-4.68) uIU/mL Urine RBC (0-5/HPF) Urine WBC (0-5/HPF) Ur Squamous Epith Cells (0-5/HPF) Amorphous Sediment Urine Bacteria (None) Urine Mucus (Negative) Ur Culture Indicated? Urine Dip Bedside Urine Glucose Negative Bedside Urine Bilirubin - Negative Bedside Urine Ketone - Negative Urine Specific [place] 1.030 Bedside Urine Occult Blood + Bedside Urine pH 6.0 Bedside Urine Protein - Negative Bedside Urine Urobilinogen - Negative Bedside Urine Nitrite - Negative Bedside Urine Leukocytes - Negative Esterase Imaging Data CTA - brain/neck: Radiologist's Impression: PROCEDURE:? CT ANGIO HEAD AND NECK ? INDICATIONS:? Dizziness progressively worsening ? TECHNIQUE:? Pre-contrast 4.5 mm thick sections acquired from the foramen magnum to the vertex.? After the administration of intravenous contrast, 1 mm thick sections acquired from the aortic arch through the [place] of [place].? Post-contrast 4.5 mm thick sections then re-acquired from the foramen magnum to the vertex.? 3-dimensional qcgvxis-vtvbhxcve-iyniaprgnb (MIP) and/or volume rendering reformats were acquired of the central intracranial vasculature and neck separately. For radiation dose reduction, the following was used:? automated exposure control, adjustment of mA and/or kV according to patient size.? ? COMPARISON:? [facility], US, US CAROTID DOPPLER BI, 12/17/2018, 12:20.? [facility], MR, MR HEAD/BRAIN WO/W CON, 12/17/2018, 14:13.? [facility], CT, CT CERVICAL SPINE WO CON, 03/30/2020, 8:22. ? FINDINGS:? Image quality:? Excellent.? ? BRAIN:? CSF spaces:? Ventricles are normal in size and shape.? Basal cisterns are patent.? No extra-axial fluid collections.? ? Brain:? No midline shift.? No intracranial bleeds or masses.? [place]-white matter interface appears intact.? ? Skull and face:? Calvarium and facial bones appear intact, without suspicious lesions.? Orbits appear normal.? ? Sinuses:? Sinuses and mastoids are clear.? The medial fischer of the maxillary sinuses have been removed, together with the ostiomeatal complexes.? Portions of the ethmoid air cell septations have also been resected. ? HEAD CT ANGIOGRAPHY:? Anterior circulation:? Intracranial internal carotid arteries are normal in size and flow.? The flow within the paired anterior cerebral arteries is normal and symmetric.? The flow within the middle cerebral arteries is normal and symmetric.? The anterior communicating artery is seen.? No aneurysms are seen.? ? Posterior circulation:? The left V segment is within normal limits.? The right V4 segment largely terminates in the right posterior inferior cerebellar artery.? There is a normal appearing basilar artery.? Flow within the posterior cerebral arteries is normal and symmetric.? No aneurysms are seen.? ? NECK CT ANGIOGRAPHY:? Carotid system:? The great vessels demonstrate a conventional anatomy as they arise from the aortic arch.? The origins of the common carotid arteries appear patent.? The common carotid arteries demonstrate normal caliber and courses.? The bifurcation regions are both widely patent.? The internal carotid arteries demonstrate normal calibers and courses.? ? Posterior circulation:? The origins of the vertebral arteries both appear widely patent.? The more superior extracranial portions of both vertebral arteries also demonstrate normal courses and calibers.? The left vertebral artery is dominant to the right. ? Soft tissues:? Visualized neck soft tissues demonstrate no suspicious abnormalities.? ? Bones:? No suspicious bony lesions.? Visualized cervical spine appears normally aligned.? Anteriorly placed cervical fusion devices are seen at the C3-C4, C4-C5, C5-C6, and C6-C7 levels.? Facet joint fusion devices are also seen on both sides at these levels. ? ? IMPRESSION:? ? No imaging explanation is found for this patient's presenting symptoms.? ? No significant intracranial arterial abnormality is seen.? ? No acute intracranial process is seen.? ? No acute intracranial hemorrhage is seen.? ? Within the arteries of the neck, no hemodynamically significant stenosis can be seen. ? Incidental note is made of: Prior bilateral antrectomy changes of the sinuses Cervical spine postoperative change ? Any quantitative measurements of stenosis were performed using NASCET criteria.? ? ? Dictated by: Froylan Sommers M.D. on 09/14/2021 at 13:28 ? ? Approved by: Froylan Sommers M.D. on 09/14/2021 at 13:32 ? MDM Narrative Medical decision making narrative: Differential diagnosis to consider but not limited to transit ischemic attack versus cerebrovascular accident versus benign paroxysmal positional vertigo. I discussed results of lab studies and imaging obtained in the emergency department today with the patient and informed her that no acute abnormality was identified that would require emergent intervention or admission to the hospital. I urged the patient to follow-up with her ENT provider for further evaluation and management, and I did inform her that I would be sending her home with scopolamine patches to help alleviate her dizziness. Additionally, I urged her to use a walker or cane for assistance while ambulating if she experiences dizziness. She expresses understanding and agrees to plan. She states that this time she is comfortable being discharged home. Patient is stable for discharge. Very strict return precautions were discussed with the patient prior to discharge. Discharge Plan Departure Patient Disposition: Home Clinical Impression: Dizziness, Vertigo Instructions: DI for Vertigo Activity Restrictions/Additional Instructions: *You have been diagnosed with dizziness, vertigo *What to do: *Please continue to take your regular medications as directed. [X] New medication prescriptions sent to your pharmacy: Scopolamine [ ] New medication written as a paper prescription [ ] No new medications given You were evaluated in the emergency department today for dizziness. CT imaging and lab studies obtained in the emergency department today did not show signs of acute abnormality that would require emergent intervention or admission to the hospital. I have sent you a course of scopolamine patches to your preferred pharmacy. These patches can remain in place for 72 hours and should be replaced as needed for dizziness. Please follow-up with the primary care provider within the next 2-3 days for further evaluation and management. Additionally, encouraged to follow up with your ENT provider for further management. Ensure that he wash her hands after touching scopolamine patches, do not touch her eye after touching the patch. Do not hesitate to return to the emergency department if you experience increasing dizziness, loss of consciousness, shortness of breath, chest pain, weakness, or any other concerning symptoms. *Please follow up with your primary care provider in 2-3 days, call for an appointment. Let them know you were seen in the Emergency Department and that we ask that you be seen in follow up. We will electronically transmit a record of today's note if your PCP is in our system *If you do not have a primary care provider please contact the [facility] Resource line at [phone]. They will ask some questions about your medical history and help get you set up with a doctor in the community. *Return to Emergency Department if you should have any new, worsening or concerning symptoms, such as fever greater than 101 F, shaking chills, worsening pain, persistent vomiting or other bothersome symptoms. Prescriptions: No Action acetaminophen-codeine 300-15 mg Tablet 0.5 tab PO BID PRN (Reason: Pain) 0RF spironolactone 25 mg Tablet 25 mg PO DAILY 0RF levothyroxine [Synthroid] 50 mcg Tablet 50 mcg PO DAILY 0RF diphenhydramine HCl [Benadryl] 25 mg Capsule 25 mg PO BEDTIME 0RF losartan 100 mg Tablet 100 mg PO QPM 0RF Label Comments: takes at night with dinner docusate sodium [DOK] 100 mg Capsule 100 mg PO BID Qty: 20 0RF hydromorphone 2 mg Tablet See Rx Instructions .ROUTE .COMPLEX PRN (Reason: Pain, Severe (7-10)) Qty: 25 0RF Rx Instructions: 1-2 PO q3h prn pain hydroxyzine pamoate 25 mg Capsule 25 mg PO Q4HR PRN (Reason: spasms) Qty: 20 0RF Referrals: Tamiko Davis DO [Primary Care Provider] -
[2021-09-14 12:58] LABS: Add Manual Diff / Slide Review NO; Basophils Absolute Auto 100 /uL (0-100); Basophils Percent Auto 1.2 % (0-2); Eosinophils Absolute Auto 100 /uL (0-450); Hematocrit 44.5 % (36-46); Hemoglobin 15.1 g/dL (12.0-16.0); Lymphocytes Absolute Auto 2500 /uL (1100-4500); Lymphocytes Percent Auto 29.2 % (25-40); Mean Corpuscular HGB Conc 34.1 % (30-36); Mean Corpuscular Hemoglobin 29.7 PG (26-34); Mean Corpuscular Volume 87.3 fL (80-100); Monocytes Absolute Auto 500 /uL (0-900); Monocytes Percent Auto 6.1 % (3-14); Neutrophils Absolute Auto 5300 /uL (1500-7000); Neutrophils Percent Auto 62.5 % (50-75); Platelet Count 307 X10^3/uL (150-400); Red Blood Cell Count 5.09 X10^6/uL (4.0-5.2); Red Cell Distribution Width 13.6 % (11.6-14.8); White Blood Cell Count 8.5 X10^3/uL (4.5-11.0)
[2021-09-14] MEDS: SCOPOLAMINE 1 PATCH TOP (13:12)
[2021-09-14 13:18] LABS: Alanine Aminotransferase 34 IU/L (<35); Albumin 4.9 g/dL (3.5-5.0); Albumin Globulin Ratio 1.3 (1.0-2.8); Alkaline Phosphatase 70 U/L (38-126); Aspartate Aminotransferase 35 IU/L (14-36); BUN Creatinine Ratio 18.6 (6-22); Bilirubin Total 0.9 mg/dL (0.2-1.3); Blood Urea Nitrogen 16 mg/dL (7-17); Calcium 9.7 mg/dL (8.4-10.2); Carbon Dioxide 26 mmol/L (22-32); Chloride 97 mmol/L (98-107); Estimated Glomerular Filt Rate > 60 mL/min (>60); Globulin 3.7 g/dL (1.7-4.1); Glucose 117 mg/dL (80-110); HEMOLYSIS < 15 (0-50); Potassium 4.5 mmol/L (3.4-5.1); Sodium 133 mmol/L (137-145); Total Protein 8.6 g/dL (6.3-8.2)
[2021-09-14 13:19] LABS: Creatine Kinase 58 U/L (30-135)
--- NOTE | 2021-09-14 13:26 | DI.CT.S_ITS ---
PROCEDURE: CT ANGIO HEAD AND NECK INDICATIONS: Dizziness progressively worsening TECHNIQUE: Pre-contrast 4.5 mm thick sections acquired from the foramen magnum to the vertex. After the administration of intravenous contrast, 1 mm thick sections acquired from the aortic arch through the [place] of [place]. Post-contrast 4.5 mm thick sections then re-acquired from the foramen magnum to the vertex. 3-dimensional rxrmyys-idmquptog-wcjhshudcr (MIP) and/or volume rendering reformats were acquired of the central intracranial vasculature and neck separately. For radiation dose reduction, the following was used: automated exposure control, adjustment of mA and/or kV according to patient size. COMPARISON: [facility], US, US CAROTID DOPPLER BI, 12/17/2018, 12:20. [facility], MR, MR HEAD/BRAIN WO/W CON, 12/17/2018, 14:13. [facility], CT, CT CERVICAL SPINE WO CON, 03/30/2020, 8:22. FINDINGS: Image quality: Excellent. BRAIN: CSF spaces: Ventricles are normal in size and shape. Basal cisterns are patent. No extra-axial fluid collections. Brain: No midline shift. No intracranial bleeds or masses. [place]-white matter interface appears intact. Skull and face: Calvarium and facial bones appear intact, without suspicious lesions. Orbits appear normal. Sinuses: Sinuses and mastoids are clear. The medial fischer of the maxillary sinuses have been removed, together with the ostiomeatal complexes. Portions of the ethmoid air cell septations have also been resected. HEAD CT ANGIOGRAPHY: Anterior circulation: Intracranial internal carotid arteries are normal in size and flow. The flow within the paired anterior cerebral arteries is normal and symmetric. The flow within the middle cerebral arteries is normal and symmetric. The anterior communicating artery is seen. No aneurysms are seen. Posterior circulation: The left V segment is within normal limits. The right V4 segment largely terminates in the right posterior inferior cerebellar artery. There is a normal appearing basilar artery. Flow within the posterior cerebral arteries is normal and symmetric. No aneurysms are seen. NECK CT ANGIOGRAPHY: Carotid system: The great vessels demonstrate a conventional anatomy as they arise from the aortic arch. The origins of the common carotid arteries appear patent. The common carotid arteries demonstrate normal caliber and courses. The bifurcation regions are both widely patent. The internal carotid arteries demonstrate normal calibers and courses. Posterior circulation: The origins of the vertebral arteries both appear widely patent. The more superior extracranial portions of both vertebral arteries also demonstrate normal courses and calibers. The left vertebral artery is dominant to the right. Soft tissues: Visualized neck soft tissues demonstrate no suspicious abnormalities. Bones: No suspicious bony lesions. Visualized cervical spine appears normally aligned. Anteriorly placed cervical fusion devices are seen at the C3-C4, C4-C5, C5-C6, and C6-C7 levels. Facet joint fusion devices are also seen on both sides at these levels. IMPRESSION: No imaging explanation is found for this patient's presenting symptoms. No significant intracranial arterial abnormality is seen. No acute intracranial process is seen. No acute intracranial hemorrhage is seen. Within the arteries of the neck, no hemodynamically significant stenosis can be seen. Incidental note is made of: Prior bilateral antrectomy changes of the sinuses Cervical spine postoperative change Any quantitative measurements of stenosis were performed using NASCET criteria. Dictated by: Froylan Sommers M.D. on 09/14/2021 at 13:28 Approved by: Froylan Sommers M.D. on 09/14/2021 at 13:32
[2021-09-14 13:30] LABS: Troponin I < 0.012 ng/mL (0.01-0.034)
[2021-09-14 13:49] LABS: Thyroid Stimulating Hormone 3.46 uIU/mL (0.47-4.68)
== END 2021-09-14 15:00 | disposition home or self-care (01) ==
PROVIDERS: Emergency Medicine; Emergency Provider Physician Assistant; PCP Family Medicine
DX: R42 Dizziness and giddiness (principal); Z87.891 Personal history of nicotine dependence
CPT/HCPCS: 36415; 70496; 70498; 80053; 81003; 81015; 82550; 84443; 84484; 85025; 93005; 99284; Q9967

== ENCOUNTER 2023-08-18 12:17 | Emergency (ER) | payer MEDICARE, OTHER, SELFPAY ==
[2020-03-29 13:00] VITALS: BMI 25.9
[2023-08-18] VITALS (12 sets, daily range): BP systolic 153–199; BP diastolic 70–97; PULSE 61–75; RESP 13–24; TEMP 36.5; O2SAT 97–99; BMI 27.8
--- NOTE | 2023-08-18 12:31 | ED.GENADULT ---
HPI - General Adult General Chief complaint: Weakness Stated complaint: chills/weakness Time Seen by Provider: 08/18/23 12:23 History of Present Illness HPI narrative: 73-year-old female with history of diet-controlled diabetes, hypertension presents stating ?I just feel so sick?. Patient states she was felt overall poorly for months and no cause has been found. She has seen her primary care physician who has run several tests and they have all been normal per patient. Last night patient felt worse than usual with body aches, chills, chest pain, generalized weakness, and decided to present today for evaluation. Of note, all of these are chronic symptoms for the patient, she just felt them more strongly last night. Related Data Home Medications Medication Instructions Recorded Confirmed acetaminophen 300 mg-codeine 15 mg 0.5 tab PO BID PRN Pain 03/25/20 03/29/20 tablet diphenhydramine HCl 25 mg capsule 25 mg PO BEDTIME 03/25/20 03/29/20 (Benadryl) levothyroxine 50 mcg tablet 50 mcg PO DAILY 03/25/20 03/29/20 (Synthroid) losartan 100 mg tablet 100 mg PO QPM 03/25/20 03/29/20 spironolactone 25 mg tablet 25 mg PO DAILY 03/25/20 03/29/20 Previous Rx's Medication Instructions Recorded docusate sodium 100 mg capsule 100 mg PO BID constipation #20 caps 03/31/20 (DOK) hydromorphone 2 mg tablet See Rx Instructions .Route 03/31/20 .COMPLEX PRN Pain, Severe (7-10) #25 tabs hydroxyzine pamoate 25 mg capsule 25 mg PO Q4HR PRN spasms #20 caps 03/31/20 scopolamine base 1 mg over 3 days 1 patch transdermal Q3D PRN 09/15/21 transdermal patch (Transderm-Scop) vertigo #10 ea Allergies Allergy/AdvReac Type Severity Reaction Status Date / Time adhesive tape Allergy Severe Tearing, Verified 08/18/23 12:29 pulling off of skin iodine [IODINE] Allergy Severe Rash Verified 08/18/23 12:29 Sulfa (Sulfonamide Allergy Severe Big acne, Verified 08/18/23 12:29 Antibiotics) boils Penicillins Allergy Intermediate Rash Verified 08/18/23 12:29 Review of Systems Review of Systems Narrative: Negative except as noted above Patient History Medical History Psoriasis Arthritis Hearing loss RLS (restless legs syndrome) Pre-diabetes Allergic rhinitis Esophageal dysmotility GERD (gastroesophageal reflux disease) Hypercholesterolemia HTN (hypertension) Spinal stenosis Hypothyroid IBS (irritable bowel syndrome) Surgical History Hx of dilation and curettage Hx of tubal ligation Hx of bilateral cataract extraction Hx of appendectomy History of section Hx of cholecystectomy Hx of sinus surgery Hx of eye surgery Social History household members: spouse Smoking Status: Former smoker alcohol intake: former Smoking Status: Former smoker alcohol intake frequency: holidays/special occasions only Substance Use Type: does not use Exam Initial Vital Signs Initial Vital Signs: Vital Signs Pulse Rate 70 08/18/23 12:26 Respiratory Rate 23 08/18/23 12:26 Pulse Oximetry 98 08/18/23 12:26 Const: Awake, alert, no acute distress, nontoxic appearing Cardiac: regular rate, regular rhythm RESP: unlabored, clear bilaterally, no wheezing GI: Soft, nontender, nondistended, no rebound, no guarding MSK: Atraumatic, full range of motion, pulses equal Skin: Warm, Dry, intact, no rashes Neuro: AO x3, CN II-XII grossly intact, moves all extremities Course Orders Ordered: ED Orders 08/18/23 12:31 Chest [XR chest 1V] Stat EKG-12 Lead Stat 08/18/23 12:32 CBC Auto Diff [Complete Blood Count AUTO DIFF] Stat CMP [Comprehensive Metabolic Panel] Stat Lipase Stat MAG [Magnesium] Stat PT [Prothrombin Time INR] Stat Respiratory Panel (Film Array) Stat TSH [Thyroid Stimulating Hormone] Stat Troponin & CK Cardiac Panel Stat 08/18/23 12:40 Ammonia (NH3) Stat 08/18/23 13:04 UA Complete [Urinalysis and Microscopic] Stat Discontinued Medications Sodium Chloride (Normal Saline 0.9%) 1,000 mls @ 1,000 mls/hr IV BOLUS ONE Stop: 08/18/23 13:30 Last Infusion: 08/18/23 15:01 Dose: Infused Documented By: Infusion: 08/18/23 14:35 Dose: 1,000 mls/hr Documented By: Admin: 08/18/23 13:08 Dose: 1,000 mls/hr Documented By: YOBANY Vital Signs Vital signs: Vital Signs - 8 hr 08/18/23 12:26 08/18/23 12:27 08/18/23 12:27 Temperature Pulse Rate 70 70 Respiratory Rate 23 19 Blood Pressure 199/91 H Pulse Oximetry 98 99 Oxygen Delivery Method 08/18/23 12:29 08/18/23 12:30 08/18/23 12:30 Temperature 97.7 F Pulse Rate 75 67 Respiratory Rate 18 22 Blood Pressure 199/91 H 176/81 H Pulse Oximetry 98 99 Oxygen Delivery Method Room Air 08/18/23 13:04 08/18/23 13:05 08/18/23 13:05 Temperature Pulse Rate 68 68 Respiratory Rate 23 19 Blood Pressure 161/73 H Pulse Oximetry 97 Oxygen Delivery Method 08/18/23 13:30 08/18/23 13:30 08/18/23 13:39 Temperature Pulse Rate 63 Respiratory Rate 24 Blood Pressure 168/73 H 157/97 H Pulse Oximetry 98 Oxygen Delivery Method 08/18/23 13:39 08/18/23 14:00 08/18/23 14:00 Temperature Pulse Rate 62 63 Respiratory Rate 17 13 Blood Pressure 163/70 H Pulse Oximetry 98 99 Oxygen Delivery Method Room Air Room Air 08/18/23 14:16 08/18/23 14:16 08/18/23 14:30 Temperature Pulse Rate 65 Respiratory Rate Blood Pressure 153/70 H 155/71 H Pulse Oximetry 99 Oxygen Delivery Method Room Air 08/18/23 14:30 08/18/23 15:07 Temperature Pulse Rate 61 61 Respiratory Rate 21 15 Blood Pressure 171/72 H Pulse Oximetry 99 98 Oxygen Delivery Method Room Air Room Air Medical Decision Making Lab Data 08/18/23 12:32 08/18/23 12:32 Labs: Lab Results 08/18/23 08/18/23 08/18/23 Range/Units 12:32 12:40 13:04 WBC 7.6 (4.5-11.0) X10^3/uL RBC 4.80 (4.0-5.2) X10^6/uL Hgb 14.5 (12.0-16.0) g/dL Hct 42.9 (36-46) % MCV 89.4 (80-100) fL MCH 30.1 (26-34) PG MCHC 33.7 (30-36) % RDW 13.3 (11.6-14.8) % Plt Count 274 (150-400) X10^3/uL Neut % (Auto) 55.4 (50-75) % Lymph % (Auto) 34.7 (25-40) % [place] % (Auto) 7.4 (3-14) % Eos % (Auto) 1.6 L (2-4) % Baso % (Auto) 0.9 (0-2) % Neut # (Auto) 4200 (6715-5919) /uL Lymph # (Auto) 2700 (6142-0629) /uL [place] # (Auto) 600 (0-900) /uL Eos # (Auto) 100 (0-450) /uL Baso # (Auto) 100 (0-100) /uL PT 11.5 (9.4-12.5) SECONDS INR 1.0 (0.9-1.3) Sodium 132 L (137-145) mmol/L Potassium 4.2 (3.4-5.1) mmol/L Chloride 99 (98-107) mmol/L Carbon Dioxide 25 (22-32) mmol/L BUN 14 (7-17) mg/dL Creatinine 0.71 (0.52-1.04) mg/dL Estimated GFR > 60 (>60) mL/min BUN/Creatinine Ratio 19.7 (6-22) Glucose 151 H (80-110) mg/dL Calcium 10.1 (8.4-10.2) mg/dL Magnesium 1.7 (1.6-2.3) mg/dL Total Bilirubin 1.0 (0.2-1.3) mg/dL AST 25 (14-36) IU/L ALT 21 (<35) IU/L Alkaline Phosphatase 65 (38-126) U/L Ammonia < 9 L (9-30) umol/L Total Creatine Kinase 94 (30-135) U/L Troponin I < 0.012 (0.01-0.034) ng/mL Total Protein 8.6 H (6.3-8.2) g/dL Albumin 4.7 (3.5-5.0) g/dL Globulin 3.9 (1.7-4.1) g/dL Albumin/Globulin Ratio 1.2 (1.0-2.8) Lipase 147 (23-300) U/L TSH 1.97 (0.47-4.68) uIU/mL Urine Color Yellow Urine Appearance Clear Urine pH 7.0 (4.5-8.0) Ur Specific [place] <=1.005 (1.000-1.035) Urine Protein Negative (Negative) Urine Glucose (UA) Negative (Negative) g/dL Urine Ketones Negative (NEGATIVE) Urine Occult Blood Trace-intact (Negative) Urine Nitrate Negative (Negative) Urine Bilirubin Negative (NEGATIVE) Urine Urobilinogen 0.2 (0.2) E.U./dL Ur Leukocyte Esterase Negative (NEGATIVE) Urine RBC None seen (0-5/HPF) Urine WBC None seen (0-5/HPF) Ur Squamous Epith Cells None seen (0-5/HPF) Urine Bacteria None seen (None) Ur Culture Indicated? Cult not indicated Vol Urine Centrifuged 10ml (spun) Chlamy pneumoniae PCR Not detected (Not Detect) Adenovirus (PCR) Not detected (Not Detect) B.parapertussis DNA PCR Not detected (Not Detecte) Coronavirus OC43 (PCR) Not detected (Not Detect) Coronavirus HKU1 (PCR) Not detected (Not Detect) Coronavirus 229E (PCR) Not detected (Not Detect) SARS-CoV-2 (PCR) Not detected (Not Detecte) Coronavirus NL63 (PCR) Not detected (Not Detect) Human Metapneumovir PCR Not detected (Not Detect) Influenza Type A (PCR) Not detected (Not Detect) Influenza Type B (PCR) Not detected (Not Detect) M. pneumoniae (PCR) Not detected (Not Detect) Parainfluenza 1 (PCR) Not detected (Not Detect) Parainfluenza 2 (PCR) Not detected (Not Detect) Parainfluenza 3 (PCR) Not detected (Not Detect) Parainfluenza 4 (PCR) Not detected (Not Detect) RSV (PCR) Not detected (Not Detect) Entero/Rhino (PCR) Not detected (Not Detect) Urine Dip Bedside Urine Glucose Negative Bedside Urine Bilirubin - Negative Bedside Urine Ketone - Negative Urine Specific [place] 1.010 Bedside Urine Occult Blood +/- Bedside Urine pH 6.5 Bedside Urine Protein - Negative Bedside Urine Urobilinogen - Negative Bedside Urine Nitrite - Negative Bedside Urine Leukocytes - Negative Esterase Point of care testing: Urine Dip Bedside Urine Glucose Negative Bedside Urine Bilirubin - Negative Bedside Urine Ketone - Negative Urine Specific [place] 1.010 Bedside Urine Occult Blood +/- Bedside Urine pH 6.5 Bedside Urine Protein - Negative Bedside Urine Urobilinogen - Negative Bedside Urine Nitrite - Negative Bedside Urine Leukocytes - Negative Esterase Imaging Data Chest x-ray: Radiologist's Impression: PROCEDURE: XR CHEST 1V INDICATIONS: chest pain/feverish x 1 month TECHNIQUE: One view of the chest was acquired. COMPARISON: [facility], , XR CHEST 1V, 03/17/2021, 18:27. FINDINGS: Surgical changes and devices: None. Lungs and pleura: Lungs are clear. No pleural effusions or pneumothorax. Mediastinum: Mediastinal contours appear normal. Heart size is normal. Bones and chest wall: No suspicious bony lesions. Overlying soft tissues appear unremarkable. IMPRESSION: No acute cardiopulmonary abnormality is seen. Dictated by: Turner Palm M.D. on 08/18/2023 at 12:21 Approved by: Turner Palm M.D. on 08/18/2023 at 12:22 ECG Data Interpretation: Normal sinus rhythm at 65 beats per minute. Normal axis, normal MO, no ST T wave changes, no STEMI MDM Narrative Medical decision making narrative: Nontoxic appearing patient with the above symptoms for several months. She states that her chronic symptoms felt more severe last night prompting her visit today. No obvious physical exam abnormalities, EKG is normal sinus rhythm. Lab work and imaging to be obtained. Laboratory work is reviewed, no leukocytosis, normal hemoglobin, normal electrolytes, normal creatinine, normal thyroid. Troponin undetectable. Chest x-ray negative for acute findings. Urinalysis negative for signs of infection. Uncertain etiology of patient's symptoms, no indication for hospitalization at this time. Patient counseled on all lab and imaging findings and I explained that I do not have a definitive cause for her prolonged symptoms. Patient questioned if stress could be related to her symptoms, I advised that stress could make her feel worse but I highly encouraged primary care follow up for further testing, especially if she continues to feel poorly. ED return precautions discussed at bedside. Patient expressed understanding of the plan and is in agreement at this time. All questions answered at the time of discharge. Discharge Plan Departure Patient Disposition: Home Clinical Impression: Dizziness, Chest pressure, Chills Instructions: DI for Muscle Weakness Activity Restrictions/Additional Instructions: Your laboratory work today did not show any reason for your symptoms. Please follow up with your primary care physician Prescriptions: No Action scopolamine base [Transderm-Scop] 1 mg over 3 days patch 3 day 1 patch transdermal Q3D PRN (Reason: vertigo) Qty: 10 0RF acetaminophen-codeine 300-15 mg Tablet 0.5 tab PO BID PRN (Reason: Pain) spironolactone 25 mg Tablet 25 mg PO DAILY levothyroxine [Synthroid] 50 mcg Tablet 50 mcg PO DAILY diphenhydramine HCl [Benadryl] 25 mg Capsule 25 mg PO BEDTIME losartan 100 mg Tablet 100 mg PO QPM Patient Comments: takes at night with dinner docusate sodium [DOK] 100 mg Capsule 100 mg PO BID Qty: 20 0RF hydromorphone 2 mg Tablet See Rx Instructions .ROUTE .COMPLEX PRN (Reason: Pain, Severe (7-10)) Qty: 25 0RF Rx Instructions: 1-2 PO q3h prn pain hydroxyzine pamoate 25 mg Capsule 25 mg PO Q4HR PRN (Reason: spasms) Qty: 20 0RF Referrals: Tamiko Davis DO [Primary Care Provider] - Stand Alone Forms: Patient Portal/API
[2023-08-18 12:39] LABS: Add Manual Diff / Slide Review NO; Basophils Absolute Auto 100 /uL (0-100); Basophils Percent Auto 0.9 % (0-2); Eosinophils Absolute Auto 100 /uL (0-450); Eosinophils Percent Auto 1.6 % (2-4); Hematocrit 42.9 % (36-46); Hemoglobin 14.5 g/dL (12.0-16.0); Lymphocytes Absolute Auto 2700 /uL (1100-4500); Lymphocytes Percent Auto 34.7 % (25-40); Mean Corpuscular HGB Conc 33.7 % (30-36); Mean Corpuscular Hemoglobin 30.1 PG (26-34); Mean Corpuscular Volume 89.4 fL (80-100); Monocytes Absolute Auto 600 /uL (0-900); Monocytes Percent Auto 7.4 % (3-14); Neutrophils Absolute Auto 4200 /uL (1500-7000); Neutrophils Percent Auto 55.4 % (50-75); Platelet Count 274 X10^3/uL (150-400); Red Cell Distribution Width 13.3 % (11.6-14.8); White Blood Cell Count 7.6 X10^3/uL (4.5-11.0)
[2023-08-18 12:55] LABS: Alanine Aminotransferase 21 IU/L (<35); Albumin 4.7 g/dL (3.5-5.0); Albumin Globulin Ratio 1.2 (1.0-2.8); Alkaline Phosphatase 65 U/L (38-126); Aspartate Aminotransferase 25 IU/L (14-36); BUN Creatinine Ratio 19.7 (6-22); Blood Urea Nitrogen 14 mg/dL (7-17); Calcium 10.1 mg/dL (8.4-10.2); Carbon Dioxide 25 mmol/L (22-32); Chloride 99 mmol/L (98-107); Creatine Kinase 94 U/L (30-135); Estimated Glomerular Filt Rate > 60 mL/min (>60); Globulin 3.9 g/dL (1.7-4.1); Glucose 151 mg/dL (80-110); HEMOLYSIS < 15 (0-50); Lipase 147 U/L (23-300); Magnesium 1.7 mg/dL (1.6-2.3); Potassium 4.2 mmol/L (3.4-5.1); Sodium 132 mmol/L (137-145); Total Protein 8.6 g/dL (6.3-8.2)
[2023-08-18 12:59] LABS: Ammonia (NH3) < 9 umol/L (9-30)
[2023-08-18 13:03] LABS: Prothrombin Time 11.5 SECONDS (9.4-12.5)
[2023-08-18 13:05] LABS: Troponin I < 0.012 ng/mL (0.01-0.034)
[2023-08-18] MEDS: SODIUM CHLORIDE 0.9% 1,000 ML 1000 ML IV (13:08)
[2023-08-18 13:18] LABS: Appearance Urine UA CLEAR; Bilirubin Urine UA NEGATIVE (NEGATIVE); Color Urine UA YELLOW; Glucose Urine UA NEGATIVE (Negative); Ketones Urine UA NEGATIVE (NEGATIVE); Leukocyte Esterase Urine UA NEGATIVE (NEGATIVE); Nitrite Urine UA NEGATIVE (Negative); Occult Blood Urine UA TRACE-INTACT (Negative); Protein Urine UA NEGATIVE (Negative); Specific Gravity Urine UA <=1.005 (1.000-1.035); Urobilinogen Urine UA 0.2 E.U./dL (0.2)
[2023-08-18 13:31] LABS: Thyroid Stimulating Hormone 1.97 uIU/mL (0.47-4.68)
[2023-08-18 13:39] LABS: Bacteria Urine None Seen; Culture Indicated Urine Cult Not Indicated; RBC Urine None Seen (0-5/HPF); Squamous Epithelial Cell Urine None Seen (0-5/HPF); Urine Volume 10mL (spun); WBC Urine None Seen (0-5/HPF)
[2023-08-18 13:45] LABS: Adenovirus Not Detected (Not Detect); B. parapertussis Not Detected (Not Detecte); Bordetella pertussis Not Detected (Not Detect); Chlamydophila pneumoniae Not Detected (Not Detect); Coronavirus 229E Not Detected (Not Detect); Coronavirus HKU1 Not Detected (Not Detect); Coronavirus NL 63 Not Detected (Not Detect); Coronavirus OC43 Not Detected (Not Detect); Human Metapneumovirus Not Detected (Not Detect); Human Rhinovirus/Enterovirus Not Detected (Not Detect); Influenza A Not Detected (Not Detect); Influenza B Not Detected (Not Detect); Mycoplasma pneumoniae Not Detected (Not Detect); Parainfluenza Virus 1 Not Detected (Not Detect); Parainfluenza Virus 2 Not Detected (Not Detect); Parainfluenza Virus 3 Not Detected (Not Detect); Parainfluenza Virus 4 Not Detected (Not Detect); Respiratory Syncytial Virus Not Detected (Not Detect); SARS- CoV-2 Not Detected (Not Detecte)
== END 2023-08-18 15:08 | disposition home or self-care (01) ==
PROVIDERS: Emergency Provider Emergency Medicine; PCP Family Medicine
DX: R42 Dizziness and giddiness (principal); R07.9 Chest pain, unspecified; R68.83 Chills (without fever); Z20.822 Contact with and (suspected) exposure to COVID-19
CPT/HCPCS: 71045; 80053; 81001; 81003; 82140; 82550; 83690; 83735; 84443; 84484; 85025; 85610; 87633; 93005; 96360; 96361; 99283; 99284

== ENCOUNTER → 2024-07-23 14:44 | Outpatient (CLI) | payer MEDICARE, OTHER, SELFPAY ==
[2020-03-29 13:00] VITALS: BMI 25.9
--- NOTE | 2024-07-23 18:14 | DI.NM.S_ITS ---
DATE OF SERVICE: 07/23/2024 EXERCISE STRESS TEST INDICATION: Chest pain with underlying diabetes mellitus, hypertension. CARDIAC STRESS: The patient walked on [place] protocol for 3 minutes and 59 seconds under the supervision of an attending staff. Achieved maximum heart rate 122, which was 83% of target heart rate. She could not keep up with treadmill. She felt fatigue. CHIQUITA positive 27%. Peak blood pressure 165/58 mmHg. Baseline rhythm is sinus with some repolarization changes. During stress, patient has less than [address] depression in inferior leads and leads V4 to V6. No significant arrhythmias. The patient has shortness of breath during exercise. CONCLUSION: This is a submaximal exercise stress test which is inconclusive for inducible ischemia. Poor exercise tolerance. CHIQUITA positive 27%. Peak blood pressure 165/58. Less than [address] depression in inferior leads and leads V4 to V6 in recovery. No significant arrhythmias. Consider repeating exercise stress test with imaging modality like perfusion study. Jessi Lopez - RUPESH/sarika/VY doc#: [id number]/job#: [id number] dd: 07/23/2024 17:17:00 dt: 07/23/2024 18:08:00 DICTATING /COPIES TO: Ho Hidalgo MD COPIES MNE: DONAVAN;
== END ==
DX: R07.9 Chest pain, unspecified (principal)
CPT/HCPCS: 93017

== ENCOUNTER 2024-10-08 11:13 | Emergency (ER) | payer MEDICARE, OTHER, SELFPAY ==
[2020-03-29 13:00] VITALS: BMI 25.9
[2024-10-08] VITALS (7 sets, daily range): BP systolic 157–177; BP diastolic 69–77; PULSE 57–71; RESP 18; TEMP 36.9; O2SAT 95–99; BMI 26.2
--- NOTE | 2024-10-08 11:33 | DI.RAD.S_ITS ---
PROCEDURE: XR CHEST 1V INDICATIONS: productive cough x 30 days TECHNIQUE: One view of the chest was acquired. COMPARISON: [facility], , XR CHEST 1V, 08/18/2023, 12:36. [facility], CR, XR CHEST 1V, 03/17/2021, 18:27. FINDINGS: Surgical changes and devices: Surgical clips project over the upper abdomen. Postsurgical changes are seen in the cervical spine. Lungs and pleura: Lungs are clear. No pleural effusions or pneumothorax. Mediastinum: Mediastinal contours appear normal. Heart size is normal. Bones and chest wall: No suspicious bony lesions. Overlying soft tissues appear unremarkable. IMPRESSION: No acute cardiopulmonary abnormality is seen. Approved by: Karthik Rae M.D. on 10/08/2024 at 12:01
--- NOTE | 2024-10-08 11:39 | EKG_ITS ---
[facility] [address] [place] [address] Test Date: 2024-10-08 Pat Name: Jessi Lopez Department: [facility] Room: Gender: Female Processing Technologist: : 1950 Requested By: Order Number: [id number] Reading MD: Giovanni Browning MD Measurements Intervals [place] Rate: 68 P: 33 MS: 180 QRS: 12 QRSD: 76 T: 46 QT: 402 QTc: 427 Interpretive Statements Normal sinus rhythm Cannot rule out Inferior infarct , age undetermined Electronically Signed On 10-08-2024 17:12:20 PDT by Giovanni Browning MD
[2024-10-08 12:17] LABS: COVID-19 CEPHEID 4-PLEX PCR Negative (Negative); Influenza A - CEPHEID Flu A NEGATIVE (NEGATIVE); Influenza B - CEPHEID Flu B NEGATIVE (NEGATIVE); Respiratory Syncytial Virus Negative (Negative)
--- NOTE | 2024-10-08 13:07 | DI.CT.S_ITS ---
PROCEDURE: CT CHEST WO CON INDICATIONS: Cough/dyspnea TECHNIQUE: Noncontrast 5 mm thick sections acquired from the pulmonary apices to the posterior costophrenic angles. 1 mm lung window, 5 mm thick coronal and sagittal and 7 mm axial MIP reformats were then acquired. For radiation dose reduction, the following was used: automated exposure control, adjustment of mA and/or kV according to patient size. COMPARISON: [facility], CR, XR CHEST 1V, 10/08/2024, 11:37. FINDINGS: Image quality: Diagnostic. Lower Neck: No enlarged lymph nodes. Thyroid: 1.0 cm right thyroid nodule does not require dedicated imaging follow-up. Axillae: No enlarged lymph nodes. Chest Wall: Unremarkable. Bones: Cervical spinal fusion hardware is partially included. No acute osseous abnormality. Lungs and Pleura: No pneumothorax or pleural effusions. Peripheral scarring at the anterior inferior right upper lobe with adjacent bronchiectasis. No consolidation or suspicious nodules. Heart: Heart size is normal. No pericardial effusion. Moderate to severe coronary artery calcifications. Thoracic Vessels: The aorta and pulmonary arteries demonstrate normal size. Mediastinum and Cindy: No enlarged lymph nodes. Small calcified right hilar lymph node likely related to prior granulomatous disease. Esophagus: No wall thickening. Small hiatal hernia. Upper Abdomen: Status post cholecystectomy. Visualized upper abdomen solid organs and bowel loops appear normal. IMPRESSION: 1. No acute abnormality is seen in the chest. 2. Moderate to severe coronary artery calcifications. Approved by: Karthik Rae M.D. on 10/08/2024 at 13:50
--- NOTE | 2024-10-08 13:09 | ED.URI ---
HPI - URI/Sore Throat General Chief Complaint: Upper Respiratory Symptoms Stated Complaint: worsening cough x30 Time Seen by Provider: 10/08/24 12:50 Source: patient Mode of arrival: Ambulatory History of Present Illness HPI Narrative: Patient here for productive nonbloody cough for the past 30 days. No prior history COPD or asthma. Patient is a former smoker. No recent foreign travel. No fever chills. Patient in no distress. Does not have appointment with primary care until December 2024. Related Data Home Medications Medication Instructions Recorded Confirmed acetaminophen 300 mg-codeine 15 mg 0.5 tab PO BID PRN Pain 03/25/20 03/29/20 tablet diphenhydramine HCl 25 mg capsule 25 mg PO BEDTIME 03/25/20 03/29/20 (Benadryl) levothyroxine 50 mcg tablet 50 mcg PO DAILY 03/25/20 03/29/20 (Synthroid) losartan 100 mg tablet 100 mg PO QPM 03/25/20 03/29/20 spironolactone 25 mg tablet 25 mg PO DAILY 03/25/20 03/29/20 Previous Rx's Medication Instructions Recorded docusate sodium 100 mg capsule 100 mg PO BID constipation #20 caps 03/31/20 (DOK) hydromorphone 2 mg tablet See Rx Instructions .Route 03/31/20 .COMPLEX PRN Pain, Severe (7-10) #25 tabs hydroxyzine pamoate 25 mg capsule 25 mg PO Q4HR PRN spasms #20 caps 03/31/20 scopolamine base 1 mg over 3 days 1 patch transdermal Q3D PRN 09/15/21 transdermal patch (Transderm-Scop) vertigo #10 ea benzonatate 100 mg capsule 100 mg PO TID PRN cough #20 caps 10/08/24 methylprednisolone 4 mg tablets in See Rx Instructions PO .COMPLEX 10/08/24 a dose pack (Medrol (Meir)) #21 ea Allergies Allergy/AdvReac Type Severity Reaction Status Date / Time adhesive tape Allergy Severe Tearing, Verified 08/18/23 12:29 pulling off of skin iodine [IODINE] Allergy Severe Rash Verified 08/18/23 12:29 Sulfa (Sulfonamide Allergy Severe Big acne, Verified 08/18/23 12:29 Antibiotics) boils Penicillins Allergy Intermediate Rash Verified 08/18/23 12:29 Review of Systems Review of Systems Narrative: GENERAL: Negative chills, fatigue, malaise, fever, sweats. HEENT: Negative sinus pain, ear pain, sore throat RESPIRATORY: Negative dyspnea, positive cough CARDIOVASCULAR: Negative chest pain, palpitations GASTROINTESTINAL: Negative vomiting, nausea, abdominal pain : Negative dysuria, frequency, hematuria MUSCULOSKELETAL: Negative muscle or bony pain SKIN: Negative rash, skin lesions NEUROLOGIC: Negative weakness, numbness ROS Unobtainable: All systems reviewed & are unremarkable except as noted in HPI and below Patient History Medical History Psoriasis Arthritis Hearing loss RLS (restless legs syndrome) Pre-diabetes Allergic rhinitis Esophageal dysmotility GERD (gastroesophageal reflux disease) Hypercholesterolemia HTN (hypertension) Spinal stenosis Hypothyroid IBS (irritable bowel syndrome) Surgical History Hx of dilation and curettage Hx of tubal ligation Hx of bilateral cataract extraction Hx of appendectomy History of section Hx of cholecystectomy Hx of sinus surgery Hx of eye surgery Social History household members: spouse Smoking Status: Never smoker alcohol intake: former Smoking Status: Never smoker alcohol intake frequency: holidays/special occasions only Exam Narrative Exam Narrative: GENERAL: in no distress, not toxic not dyspneic HEAD: Normocephalic. EYES: Pupils equal round ENT: Mucous membranes moist. NECK: Trachea midline. CARDIOVASCULAR: Regular rate and rhythm RESPIRATORY: Patient is speaking full sentences no respiratory distress. There is diminished bilateral basilar lung sounds Breath sounds equal bilaterally. No wheezes, rales, or rhonchi. GASTROINTESTINAL: Abdomen soft, non-tender EXTREMITIES: No gross deformities. BACK: No flank tenderness. NEURO: AOx4. Clear speech SKIN: Warm and dry PSYCH: Not anxious, is cooperative Initial Vital Signs Initial Vital Signs: Vital Signs Temperature 98.5 F 10/08/24 11:25 Pulse Rate 69 10/08/24 11:25 Respiratory Rate 18 10/08/24 11:25 Blood Pressure 177/77 H 10/08/24 11:25 Pulse Oximetry 98 10/08/24 11:25 Oxygen Delivery Method Room Air 10/08/24 11:25 Course Orders Ordered: Discontinued Medications Albuterol (Albuterol 2.5 Mg/3 Ml Neb (Adult)) 2.5 mg INH NOW ONE Stop: 10/08/24 13:08 Last Admin: 10/08/24 13:20 Dose: Not Given Documented By: DILCIA Albuterol (Albuterol Hfa Prepack) 1 box MISC DIRECTED ONE Stop: 10/08/24 13:15 Last Admin: 10/08/24 13:31 Dose: 1 box Documented By: JOEL Benzonatate (Benzonatate 100 Mg Capsule) 100 mg PO NOW ONE Stop: 10/08/24 13:08 Last Admin: 10/08/24 13:20 Dose: 100 mg Documented By: DILCIA Prednisone (Prednisone 20 Mg Tablet) 40 mg PO NOW ONE Stop: 10/08/24 13:12 Last Admin: 10/08/24 13:20 Dose: 40 mg Documented By: DILCIA Vital Signs Vital signs: Vital Signs - 8 hr 10/08/24 11:25 10/08/24 12:54 10/08/24 12:54 Temperature 98.5 F Pulse Rate 69 68 Respiratory Rate 18 Blood Pressure 177/77 H 177/75 H Pulse Oximetry 98 98 Oxygen Delivery Method Room Air 10/08/24 13:00 10/08/24 13:00 10/08/24 13:34 Temperature Pulse Rate 68 57 L Respiratory Rate 18 Blood Pressure 157/69 H Pulse Oximetry 97 96 Oxygen Delivery Method Room Air MDM - URI/Sore Throat Lab Data Labs: Lab Results 10/08/24 Range/Units 11:30 SARS-CoV-2 (PCR) Negative (Negative) Influenza A (RT-PCR) Flu a negative (NEGATIVE) Influenza B (RT-PCR) Flu b negative (NEGATIVE) RSV (PCR) Negative (Negative) Imaging Data Chest x-ray: Radiologist's Impression: [address] [address] XRay Report Signed Patient: Jessi Lopez MR#: [id number] : 1950 Acct:[id number] Age/Sex: 74 / F Date of Service: 10/08/24 Loc: ED Accession Number: [id number] Procedure: XR chest 1V Ordering Provider: Turner Elam MD PROCEDURE: XR CHEST 1V INDICATIONS: productive cough x 30 days TECHNIQUE: One view of the chest was acquired. COMPARISON: [facility], CR, XR CHEST 1V, 08/18/2023, 12:36. [facility], CR, XR CHEST 1V, 03/17/2021, 18:27. FINDINGS: Surgical changes and devices: Surgical clips project over the upper abdomen. Postsurgical changes are seen in the cervical spine. Lungs and pleura: Lungs are clear. No pleural effusions or pneumothorax. Mediastinum: Mediastinal contours appear normal. Heart size is normal. Bones and chest wall: No suspicious bony lesions. Overlying soft tissues appear unremarkable. IMPRESSION: No acute cardiopulmonary abnormality is seen. Approved by: Karthik Rae M.D. on 10/08/2024 at 12:01 CT scan - chest: Radiologist's Impression: [address] [address] [address] Scan Report Signed Patient: Jessi Lopez MR#: [id number] : 1950 Acct:[id number] Age/Sex: 74 / F Date of Service: 10/08/24 Loc: ED Accession Number: [id number] Procedure: CT chest wo con Ordering Provider: Turner Elam MD PROCEDURE: CT CHEST WO CON INDICATIONS: Cough/dyspnea TECHNIQUE: Noncontrast 5 mm thick sections acquired from the pulmonary apices to the posterior costophrenic angles. 1 mm lung window, 5 mm thick coronal and sagittal and 7 mm axial MIP reformats were then acquired. For radiation dose reduction, the following was used: automated exposure control, adjustment of mA and/or kV according to patient size. COMPARISON: [facility], CR, XR CHEST 1V, 10/08/2024, 11:37. FINDINGS: Image quality: Diagnostic. Lower Neck: No enlarged lymph nodes. Thyroid: 1.0 cm right thyroid nodule does not require dedicated imaging follow-up. Axillae: No enlarged lymph nodes. Chest Wall: Unremarkable. Bones: Cervical spinal fusion hardware is partially included. No acute osseous abnormality. Lungs and Pleura: No pneumothorax or pleural effusions. Peripheral scarring at the anterior inferior right upper lobe with adjacent bronchiectasis. No consolidation or suspicious nodules. Heart: Heart size is normal. No pericardial effusion. Moderate to severe coronary artery calcifications. Thoracic Vessels: The aorta and pulmonary arteries demonstrate normal size. Mediastinum and Cindy: No enlarged lymph nodes. Small calcified right hilar lymph node likely related to prior granulomatous disease. Esophagus: No wall thickening. Small hiatal hernia. Upper Abdomen: Status post cholecystectomy. Visualized upper abdomen solid organs and bowel loops appear normal. IMPRESSION: 1. No acute abnormality is seen in the chest. 2. Moderate to severe coronary artery calcifications. Approved by: Karthik Rae M.D. on 10/08/2024 at 13:50 [facility] Narrative Medical decision making narrative: Patient here for productive nonbloody cough for the past 30 days. No prior history COPD or asthma. Patient is a former smoker. No recent foreign travel. No fever chills. Patient in no distress. Does not have appointment with primary care until December 2024. After history and exam, exam is reassuring. Has slightly diminished lung sounds, chest x-ray respiratory panel EKG ordered, inhaler Tessalon Perles CT chest ordered, as well as prednisone [facility] Medical records reviewed: No recent visit for this complaint Differential considered: Includes but not limited to pneumonia bronchitis viral upper respiratory infection Lab Test results independently reviewed as above. Pertinent findings: Respiratory panel negative Independently reviewed EKG normal sinus rhythm rate 68 Imaging studies independently reviewed: Chest x-ray no acute finding, CT chest moderate to severe coronary artery calcifications otherwise no acute finding Consultations: None indicated this time Re-evaluations: 2:03 p.m.. Updated patient results. Likely bronchitis. No antibiotics are indicated at this time. Patient does feel better with inhaler and cough medication provided here. Unrelated to today's symptoms I reviewed with her, CT chest results, moderate to severe calcifications of the coronary arteries, she is scheduled for a outpatient 2 day/2 part stress test October 27. It was scheduled by her family doctor. I informed her she will need to contact her family doctor regarding today's findings. Phone number for Cardiology service was provided for patient. Again she has no chest pain. This was incidental finding. Discussion: Appropriate for discharge home. Today's exam and laboratory studies are reassuring. Patient has coronary calcifications are incidental findings. She has no chest pain or exertional chest pain or shortness of breath. She does have family doctor to follow up with. She is scheduled stress test October 27. She will contact her family doctor tomorrow regarding CT findings of the coronary arteries. She desires discharge home. Diagnosis: Bronchitis Discharge Plan Departure Patient Disposition: Home Clinical Impression: Bronchitis Instructions: DI for Acute Bronchitis Activity Restrictions/Additional Instructions: Your exam and laboratory studies are reassuring. However, it is up to the finding of your heart vessels were seen on your CT scan, you will need to contact your family doctor regarding these calcifications on your heart arteries. Your scheduled for stress test October 27. You will need to call your family doctor today or tomorrow for follow up to today's CT scan findings. Prescriptions have been provided for you. Return if worse if any questions or concerns. Continue inhaler 2 puffs every 4 hours as needed for cough. Continue steroid pack tomorrow. Prescriptions: New benzonatate 100 mg capsule 100 mg PO TID PRN (Reason: cough) Qty: 20 0RF methylprednisolone [Medrol (Meir)] 4 mg tablets,dose pack See Rx Instructions .ROUTE .COMPLEX Qty: 21 0RF Rx Instructions: orally per package directions No Action scopolamine base [Transderm-Scop] 1 mg over 3 days patch 3 day 1 patch transdermal Q3D PRN (Reason: vertigo) Qty: 10 0RF acetaminophen-codeine 300-15 mg Tablet 0.5 tab PO BID PRN (Reason: Pain) spironolactone 25 mg Tablet 25 mg PO DAILY levothyroxine [Synthroid] 50 mcg Tablet 50 mcg PO DAILY diphenhydramine HCl [Benadryl] 25 mg Capsule 25 mg PO BEDTIME losartan 100 mg Tablet 100 mg PO QPM Patient Comments: takes at night with dinner docusate sodium [DOK] 100 mg Capsule 100 mg PO BID Qty: 20 0RF hydromorphone 2 mg Tablet See Rx Instructions .ROUTE .COMPLEX PRN (Reason: Pain, Severe (7-10)) Qty: 25 0RF Rx Instructions: 1-2 PO q3h prn pain hydroxyzine pamoate 25 mg Capsule 25 mg PO Q4HR PRN (Reason: spasms) Qty: 20 0RF Referrals: Loren Mondragon ARNP [Primary Care Provider] - Stand Alone Forms: Patient Portal/API/Survey
[2024-10-08] MEDS: BENZONATATE 100 MG CAPSULE PO (13:20)
[2024-10-08] MEDS: predniSONE 20 MG TABLET 40 MG PO (13:20)
[2024-10-08] MEDS: ALBUTEROL HFA PREPACK 1 BOX MISC (13:31)
== END 2024-10-08 14:32 | disposition home or self-care (01) ==
PROVIDERS: Emergency Provider Emergency Medicine
DX: J20.9 Acute bronchitis, unspecified (principal)
CPT/HCPCS: 0241U; 71045; 71250; 93005; 99283; 99284

== ENCOUNTER → 2024-10-28 11:50 | Outpatient (CLI) | payer MEDICARE, OTHER, SELFPAY ==
[2020-03-29 13:00] VITALS: BMI 25.9
--- NOTE | 2024-10-28 11:52 | DI.NM.S_ITS ---
PROCEDURE: NM JENNIFER PERF SPECT REST & STR Rest and exercise myocardial perfusion SPECT with gated imaging and ejection fraction RADIOPHARMACEUTICAL: 25.8 mCi Tc-99m sestamibi IV at rest and 27.2 mCi Tc-99m sestamibi IV at peak exercise. A 2 day-protocol was performed. INDICATIONS: SOB PQRS ATTESTATIONS: Measure 322 - Is this imaging test primarily performed on a low-risk surgery patient for preoperative evaluation within 30 days preceding their low-risk non-cardiac surgery? Low-risk surgery is defined as cardiac or myocardial infarction less than 1%, including (but not limited to) endoscopic procedures, superficial procedures, cataract surgery, and excisional breast surgery: Answer: No Measure 323 - Is this imaging test performed primarily for the monitoring of an asymptomatic patient who had percutaneous coronary intervention on the visit date or within 2 years of the visit date? Answer: No Measure 324 - Is this imaging test performed primarily for the initial detection and risk assessment on an asymptomatic, low coronary heart disease patient? Low CHD risk definition = clinicians should consider the maximum number of available patient factors used to estimate risk based on [place] (ATP III criteria), typically age, gender, diabetes, smoking status, and use of blood pressure medication, and integrate age appropriate estimates for missing elements, such as LDL or standard blood pressure. Answer: No TECHNIQUE: Radiopharmaceutical was injected at peak stress test, and also at rest. SPECT images were obtained. SPECT myocardial perfusion images were displayed in short axis, horizontal long axis, and vertical long axis views. Gated images were reviewed using AutoQU[employer] software. COMPARISON: None. CARDIAC STRESS: A standard [place] treadmill exercise tolerance test was performed by the patient under the supervision of an attending staff. The patient exercised for 4 minutes and 50 seconds; functional aerobic impairment (CHIQUITA) is +11%. Hemodynamic data: There is normal blood pressure and heart rate response to exercise stress. Patient achieved 90% of maximum predicted heart rate at peak exercise. Symptoms: Patient denied chest pain during exercise. EKG: Horizontal ST depressions noted in the inferior and lateral precordial leads of approximately 1 mm noted starting at 1 minute into recovery. These persisted until 4 minutes and 13 seconds into recovery. No ischemic changes noted during the stress phase. No arrhythmias present. FINDINGS: Raw data: There is good myocardial labeling by radiotracer. No significant motion artifacts. Dsgd-ts-[id number] ratio is 0.20 (normal is less than 0.38 for sestamibi tracer, and less than 0.50 for thallium tracer). Left ventricle function: Gated images demonstrate normal left ventricle wall thickening. No segmental wall motion abnormality. No transient ischemic dilation; TID is 0.94 (normal less than 1.3). The left ventricle resting end-diastolic volume is 42 mL. Left ventricle stress ejection fraction is 95; normal values are above 45%. Myocardial perfusion: There is normal distribution of activity in the left and right ventricular myocardium. No fixed or reversible perfusion defects. IMPRESSION: 1. Negative exercise myocardial perfusion scan for ischemia and infarction. 2. Below average exercise tolerance. 3. No significant changes when compared with previous myocardial perfusion scan from 01/27/2019. Dictated by: Armani Tejeda M.D. on 10/30/2024 at 16:54 Approved by: Armani Tejeda M.D. on 10/30/2024 at 16:57
== END ==
DX: R06.02 Shortness of breath (principal)
CPT/HCPCS: 78452; 93017; A9502

== ENCOUNTER → 2024-12-30 13:01 | Outpatient (CLI) | payer MEDICARE, OTHER, SELFPAY ==
[2020-03-29 13:00] VITALS: BMI 25.9
--- NOTE | 2024-12-30 13:04 | DI.ECHO.S_ITS ---
[facility]+ [facility] : : [address] : : [place] : : [address] : : Phone: [phone] Echocardiogram Report + + :Name: SAMANTHA GUZMAN Study Date: 12/30/2024 Height: 59 in : :Hospital ReadingLocation: Weight: 129 lb : : Gender: Female BSA: 1.5 m2 : :: 1950 Age: 74 yrs BP: 137/73 mmHg: :Reason For Study: CORONARY ARTERY CALCIFICATION : :Ordering Physician: KIKA, : :SHAHZAD Performed By: Antionette Martin : :Referring: SHAHZAD ANAND : + + Interpretation Summary Normal biventricular size and systolic function. LVEF is 60 to 65%. Normal atrial sizes. No significant valvular pathology is noted. Other findings as below. Procedure: A two-dimensional transthoracic echocardiogram with color flow and Doppler was performed. The study quality was technically adequate. Comparison is made with the echocardiogram of 12/30/2009. The patient was in sinus bradycardia with heart rates between 48-80 bpm during the exam. Left Ventricle: The left ventricle is normal in size and wall thickness. The ejection fraction is estimated to be 60-65%. Normal diastolic function. Right Ventricle: The right ventricle is normal in size and function. Atria: The left atrial size is normal. Right atrial size is normal. There is no Doppler evidence for an interatrial shunt. Mitral Valve: The mitral valve leaflets appear to open well. There is trace mitral regurgitation. Aortic Valve: The aortic valve is trileaflet. The aortic valve opens well. There is no aortic valve stenosis. No aortic regurgitation is present. Tricuspid Valve: The tricuspid valve leaflets are thin and pliable. There is trace tricuspid regurgitation. Pulmonary artery pressures cannot be estimated because of the lack of a measurable TR jet velocity but the IVC suggests a CVP of around 3 mmHg. Pulmonic Valve: The pulmonic valve leaflets are thin and pliable; valve motion is normal. There is a trace or physiologic amount of pulmonic regurgitation. Great Vessels: The aortic root is normal size. The dimensions of the ascending aorta are normal. The IVC is of normal diameter and collapses greater than 50% with a sniff. This suggests a low right atrial pressure of 3 mm Hg. Pericardium/ Pleura There is no pericardial effusion. There is no pleural effusion. MMode/2D Measurements & Calculations LVIDd: 4.3 cm LVOT diam: 2.0 cm LVIDs: 2.9 cm Ao root diam: 3.3 cm FS: 33.0 % asc Aorta Diam: 3.3 cm EPSS: 0.77 cm Ao Arch Diam (Prox Trans): 2.3 cm IVSd: 0.61 cm LVPWd: 0.74 cm LV sim. diameter/BSA (cm/m^2): 2.8 LV sys. diameter/BSA (cm/m^2): 1.9 LA A2 area: 15.4 cm2 RA long axis: 4.7 cm LA A4 area: 13.8 cm2 RA area: 12.8 cm2 LA length (vol): 4.6 cm RA vol: 29.8 ml LA vol: 38.9 ml RA : 19.5 ml/m2 LA vol index: 25.4 ml/m2 IVC diam: 1.6 cm RVD1 (basal): 3.5 cm RVD2 (mid): 3.4 cm TAPSE: 2.1 cm Doppler Measurements & Calculations Ao V2 max: 124.0 cm/sec LVOT Max Edgar: 101.9 cm/sec Ao V2 mean: 84.6 cm/sec LV V1 max P.2 mmHg Ao max P.1 mmHg LV V1 VTI: 25.2 cm Ao mean P.2 mmHg REBEKA(I,D): 2.5 cm2 Ao V2 VTI: 30.4 cm REBEKA(V,D): 2.5 cm2 sev ratio: 0.83 REBEKA indexed to BSA (cm^2/m^2): 1.6 MV E max edgar: 63.5 cm/sec PA V2 max: 86.0 cm/sec MV A max edgar: 81.2 cm/sec PA V2 mean: 56.2 cm/sec MV E/A: 0.78 PA mean P.4 mmHg Med Peak E' Edgar: 8.1 cm/sec PA pr(Accel): 16.1 mmHg E/E' med: 7.8 Lat Peak E' Edgar: 8.5 cm/sec E/E' lat: 7.5 E/e' average: 7.7 MV dec time: 0.20 sec SVLVOT): 76.3 ml Reading Physician:12:53 PM
[2024-12-30 15:08] LABS: Cholesterol 161 mg/dL (140-199); HDL Cholesterol 53 mg/dL (40-60); Triglycerides 171 mg/dL (35-150)
== END ==
PROVIDERS: Referring Provider Internal Medicine Cardiovascular Disease; Visit Provider Internal Medicine Cardiovascular Disease
DX: I25.10 Atherosclerotic heart disease of native coronary artery without angina pectoris (principal); I34.0 Nonrheumatic mitral (valve) insufficiency; I07.1 Rheumatic tricuspid insufficiency; I37.1 Nonrheumatic pulmonary valve insufficiency
CPT/HCPCS: 36415; 80061; 93306